=== PATIENT | male | born 1975 | race Caucasian/White ===

== ENCOUNTER 2020-04-13 10:29 | Outpatient (REF) | payer MEDICAID, SELFPAY ==
--- NOTE | 2020-04-13 | US_ITS ---
EXAMINATION: BILATERAL TRIPLEX SCANNING OF THE LOWER EXTREMITIES CLINICAL INFORMATION: Lower extremity swelling. COMPARISON: None. TECHNIQUE: Color-flow triplex imaging with spectral analysis and compression Doppler were performed on the lower extremities. FINDINGS: Respiratory variation, normal compression and augmented flow are noted throughout the lower extremities. The visualized common femoral vein, superficial femoral vein, profunda femoral vein, popliteal vein and mid calf peroneal and posterior tibial venous segments show no evidence of deep venous thrombosis. There is a moderately sized Shetty's cyst on the right. Subcutaneous calf edema bilaterally. There is a mildly enlarged lymph node in the left groin which is nonspecific. IMPRESSION: Normal triplex scan without evidence of deep venous thrombosis involving the lower extremities. Moderately sized right Shetty's cyst.
== END 2020-04-13 10:30 | disposition home or self-care (01) ==
LOC: HO.US 10:29
PROVIDERS: Visit Provider Nurse Practitioner Primary Care
DX: R60.0 Localized edema (principal)
CPT/HCPCS: 93970

== ENCOUNTER → 2023-06-19 13:54 | Outpatient (REF) | payer MEDICAID, SELFPAY | LOC: HO.SL 13:54 | PROVIDERS: PCP Registered Nurse; Visit Provider Registered Nurse | DX: Z13.89 Encounter for screening for other disorder (principal) ==

== ENCOUNTER 2023-08-27 15:00 | Outpatient (AMB) | payer MEDICAID, SELFPAY ==
--- NOTE | 2023-08-27 15:45 | MHC.OFFVIS ---
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 Patient states he has trouble ambulating for the last three years, uses cane due to pain. 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 Complaints include pain bilateral lower extremity, swelling of lower extremities, cramping, fatigue, and heaviness of the lower extremities. It has been affecting there daily activities including walking which requires the use of a cane. It is noted more so in right leg. Of note he does smoke about a pack a day and is a diabetic in addition he does have back pain issues Patient denies any previous venous surgery or injections. Patient denies any history of DVT/ PE. Patient denies any history of phlebitis. Trial of compression includes - [id number] They now present for vascular evaluation regarding their varicose veins. [facility] Medical History Depression with anxiety Type 2 diabetes mellitus Tobacco dependence Essential (primary) hypertension Psychophysiologic insomnia NIMO (obstructive sleep apnea) Dyslipidemia Opioid dependence Review of Systems Const All systems reviewed & are unremarkable except as noted in HPI and below Reports no additional complaints ENT Reports Normal hearing present Card Denies chest pain, Denies chest pain at rest, Denies chest pain with activity and Denies pedal edema Resp Denies cough GI Denies abdominal pain Musc Denies abnormal gait, Denies muscle cramps and Denies radiating pain into limb Skin/Breast Denies skin ulcer and Denies wounds Neuro Reports Normal hearing present and Denies abnormal gait Psych Reports no additional complaints Physical Exam Vital Signs: BMI result Body Mass Index 33.7 Const General: cooperative, healthy appearing and comfortable Orientation/consciousness: oriented to person, oriented to place and oriented to time HEENT Head: Yes normal to inspection Neck Neck: Yes normal visual inspection Carotids: no bruits Chest Chest palpation & inspection: normal inspection of the chest Resp Effort & Inspection: normal respiratory effort and able to speak in complete sentences Auscultation: clear to auscultation bilaterally, no crackles, no rales, no rhonchi and no wheezes Cardio Rate: regular rate Rhythm: regular rhythm Heart sounds: S1 normal heart sound present and S2 normal heart sound present Bruits: no carotid bruits Peripheral pulses: Peripheral pulses 2+ throughout GI Inspection: Yes normal to inspection Skin Wounds: no wounds Hair: normal Neuro General: oriented to person, oriented to place and oriented to time Cranial nerves: Yes CN's II-XII intact bilaterally and Yes Normal hearing present Cognition (Neuro): normal cognition Motor exam (neuro): 5/5 motor strength present throughout Extrem Other: venous exam: +1 edema General: No clubbing, No cyanosis and Yes edema Psych Appearance: grossly normal Mental Status: mental status grossly normal Speech and movement: Normal speech and movement present Assessment & Plan Assessment & Plan (1) Varicose veins of right lower extremity with inflammation: Code(s): I83.11 - Varicose veins of right lower extremity with inflammation Plan: Unclear etiology of lower extremity pain. He does have some swelling which I will workup with venous insufficiency testing. I do believe there is a neurogenic component due to neuropathy and his back pain. It does not appear to be arterial in nature as he does have bilateral palpable dorsalis pedis pulses. Once again we will obtain venous insufficiency testing and he will follow up after testing. Thank you for allowing us to assist in his care. If there are any questions or concerns please do not hesitate to contact us. Orders: Orders US venous insuf bilat 1 Week I83.11 - Varicose veins of right lower extremity with inflammation Coding Level of Care Code New Pt Level 4 (76519) Diagnoses Varicose veins of right lower extremity with inflammation I83.11
[2023-08-27 15:46] VITALS: BMI 33.7
== END 2023-08-27 16:15 | disposition home or self-care (01) ==
LOC: HO.HVS 15:00
PROVIDERS: PCP Registered Nurse; Visit Provider Surgery Vascular Surgery
DX: I83.11 Varicose veins of right lower extremity with inflammation (principal)
CPT/HCPCS: 99203

== ENCOUNTER → 2023-08-27 15:00 | Outpatient (BNVA) | payer MEDICAID, SELFPAY | PROVIDERS: PCP Registered Nurse; Visit Provider Surgery Vascular Surgery | DX: I83.11 Varicose veins of right lower extremity with inflammation (principal) | CPT/HCPCS: 99202 ==

== ENCOUNTER 2023-09-04 12:49 | Outpatient (REF) | payer MEDICAID, SELFPAY ==
--- NOTE | ~2023-09-04 | US_ITS ---
EXAMINATION: US LOWER EXTREMITY VENOUS (REFLUX EXAM), BILATERAL CLINICAL INFORMATION: Chronic venous insufficiency with lower extremity varicose veins with inflammation COMPARISON: None TECHNIQUE: Color flow triplex imaging and compression Doppler was performed to evaluate both the deep and the superficial systems bilaterally. To evaluate the superficial system, the examination was performed in the upright position. Color-flow Doppler ultrasound and compression ultrasound were utilized. In addition, maneuvers were utilized to demonstrate reflux. FINDINGS: 1. DEEP VENOUS ULTRASOUND OF THE RIGHT LOWER EXTREMITY: Common Femoral Vein: Compressible, normal respiratory variation and augmented flow. Femoral Vein: Compressible, normal color flow and augmentation. Popliteal Vein: Compressible, normal augmentation. Deep Reflux: There is no evidence of reflux in the deep system in either the common femoral vein, superficial femoral or the popliteal vein. There is no evidence of a Shetty's cyst. 2. SUPERFICIAL ULTRASOUND WITH DOPPLER OF RIGHT LOWER EXTREMITY: GREAT SAPHENOUS VEIN: Saphenofemoral Junction: 0.7 cm; Reflux: 2508 ms Proximal Thigh: 0.3 cm; Reflux: 0 ms Mid Thigh: 0.4 cm; Reflux: 0 ms Distal Thigh: 0.4 cm; Reflux: 0 ms At Knee: 0.3 cm; Reflux: 0 ms Proximal Calf: 0.3 cm; Reflux: 0 ms Mid Calf: 0.3 cm; Reflux: 0 ms Distal Calf: 0.3 cm; Reflux: 0 ms DUPLICATED MEDIAL GREAT SAPHENOUS VEIN: Diameter: None imaged Reflux: NA DUPLICATED LATERAL GREAT SAPHENOUS VEIN: Diameter: 0.3 cm Reflux: None SMALL SAPHENOUS VEIN: Saphenopopliteal Junction: 0.2 cm; Reflux: 0 ms Proximal: 0.2 cm; Reflux: 0 ms Distal: 0.2 cm; Reflux: 0 ms VEIN OF GIACOMINI: Size: NA Reflux: NA PERFORATORS: Location: Proximal and mid calf Size: 0.2 to 0.3 cm Reflux: None VARICOSITIES: Location: None significant. Size: NA Reflux: NA 3. DEEP VENOUS ULTRASOUND OF THE LEFT LOWER EXTREMITY: Common Femoral Vein: Compressible, normal respiratory variation and augmented flow. Femoral Vein: Compressible, normal color flow and augmentation. Popliteal Vein: Compressible, normal augmentation. Deep Reflux: There is no evidence of reflux in the deep system in either the common femoral vein, superficial femoral or the popliteal vein. There is no evidence of a Shetty's cyst. 4. SUPERFICIAL ULTRASOUND WITH DOPPLER OF LEFT LOWER EXTREMITY: GREAT SAPHENOUS VEIN: Saphenofemoral Junction: 0.7 cm; Reflux: 0 ms Proximal Thigh: 0.4 cm; Reflux: 0 ms Mid Thigh: 0.3 cm; Reflux: 0 ms Distal Thigh: 0.4 cm; Reflux: 0 ms At Knee: 0.4 cm; Reflux: 0 ms Proximal Calf: 0.3 cm; Reflux: 0 ms Mid Calf: 0.2 cm; Reflux: 0 ms Distal Calf: 0.2 cm; Reflux: 0 ms DUPLICATED MEDIAL GREAT SAPHENOUS VEIN: Diameter: None imaged Reflux: NA DUPLICATED LATERAL GREAT SAPHENOUS VEIN: Diameter: 0.5 cm Reflux: None SMALL SAPHENOUS VEIN: Saphenopopliteal Junction: 0.2 cm; Reflux: 0 ms Proximal: 0.2 cm; Reflux: 0 ms Distal: 0.3 cm; Reflux: 0 ms VEIN OF GIACOMINI: Size: NA Reflux: NA PERFORATORS: Location: None significant Size: NA Reflux: NA VARICOSITIES: Location: Posterior mid calf off the small saphenous vein Size: 0.4 cm Reflux: None US/US venous insuf bilat IMPRESSION: Right: Reflux in the saphenofemoral junction of the right great saphenous vein. Remainder of the right great saphenous vein and small saphenous vein without significant reflux Left: No significant reflux in the left great saphenous vein or small saphenous vein
== END 2023-09-04 12:50 | disposition home or self-care (01) ==
LOC: HO.US 12:49
PROVIDERS: PCP Registered Nurse; Visit Provider Surgery Vascular Surgery
DX: I83.11 Varicose veins of right lower extremity with inflammation (principal)
CPT/HCPCS: 93970

== ENCOUNTER → 2023-10-07 15:55 | Outpatient (REF) | payer MEDICAID, SELFPAY | LOC: HO.SL 15:55 | PROVIDERS: PCP Registered Nurse; Visit Provider Registered Nurse | DX: G47.33 Obstructive sleep apnea (adult) (pediatric) (principal); R06.83 Snoring | CPT/HCPCS: 95806 ==

== ENCOUNTER → 2023-10-07 19:00 | Outpatient (BNV) | payer MEDICAID, SELFPAY | PROVIDERS: PCP Registered Nurse; Visit Provider Internal Medicine | DX: G47.33 Obstructive sleep apnea (adult) (pediatric) (principal) | CPT/HCPCS: 95806 ==

== ENCOUNTER 2023-10-08 13:08 | Outpatient (AMB) | payer MEDICAID, SELFPAY ==
--- NOTE | 2023-10-08 13:10 | MHC.OFFVIS ---
Intake Intake Visit Reasons: F/U US 09/04/23 Intake Note: Patient presents for us f/u that was performed on 09/04/23. When asked if he has any swelling or discoloration he states he always has something going on with his legs. No other complaints. Accompanied by: Self / Same As Patient Allergies No Known Allergies Allergy (Verified 10/08/23 13:14) HPI F/U US 09/04/23 HPI Details Complex 48-year-old gentleman presents for follow-up regarding venous insufficiency. At the time of my discussion he states that his legs were doing fairly well and the swelling was down. That being said he woke up about 15 minutes ago. He reports no difficulties at the current time. He now presents for follow-up with venous insufficiency testing. [facility], [facility] Medical History Depression with anxiety Type 2 diabetes mellitus Tobacco dependence Essential (primary) hypertension Psychophysiologic insomnia NIMO (obstructive sleep apnea) Dyslipidemia Opioid dependence Review of Systems Const All systems reviewed & are unremarkable except as noted in HPI and below Reports no additional complaints ENT Reports Normal hearing present Card Denies chest pain, Denies chest pain at rest, Denies chest pain with activity and Denies pedal edema Resp Denies cough GI Denies abdominal pain Musc Denies abnormal gait, Denies muscle cramps and Denies radiating pain into limb Skin/Breast Denies skin ulcer and Denies wounds Neuro Reports Normal hearing present and Denies abnormal gait Psych Reports no additional complaints Physical Exam Const General: cooperative, healthy appearing and comfortable Orientation/consciousness: oriented to person, oriented to place and oriented to time HEENT Head: Yes normal to inspection Neck Neck: Yes normal visual inspection Carotids: no bruits Chest Chest palpation & inspection: normal inspection of the chest Resp Effort & Inspection: normal respiratory effort and able to speak in complete sentences Auscultation: clear to auscultation bilaterally, no crackles, no rales, no rhonchi and no wheezes Cardio Rate: regular rate Rhythm: regular rhythm Heart sounds: S1 normal heart sound present and S2 normal heart sound present Bruits: no carotid bruits Peripheral pulses: Peripheral pulses 2+ throughout GI Inspection: Yes normal to inspection Skin Wounds: no wounds Hair: normal Neuro General: oriented to person, oriented to place and oriented to time Cranial nerves: Yes CN's II-XII intact bilaterally and Yes Normal hearing present Cognition (Neuro): normal cognition Motor exam (neuro): 5/5 motor strength present throughout Extrem Other: venous exam: No significant superficial varicosities or spider telangiectasias, minimal edema General: No clubbing, No cyanosis and No edema Psych Appearance: grossly normal Mental Status: mental status grossly normal Speech and movement: Normal speech and movement present Results Reviewed Results Reviewed: Brief summary of venous insufficiency testing is as follows: right great saphenous vein: negative right small saphenous vein: negative right accessory vein: none present left great saphenous vein: negative left small saphenous vein: negative left accessory vein: none present Please note there is no evidence of any venous aneurysms or significant tortuosity Assessment & Plan Assessment & Plan (1) Varicose veins of right lower extremity with inflammation: Code(s): I83.11 - Varicose veins of right lower extremity with inflammation Plan: In short patient is essentially negative for venous insufficiency. We did discuss routine conservative measures including compression elevation and exercise. Will follow up with us on an as-needed basis. Thank you for allowing us to assist in his care. If there are any questions or concerns please do not hesitate to contact us. Coding Level of Care Code Est Pt Level 4 (06634) Diagnoses Varicose veins of right lower extremity with inflammation I83.11
== END 2023-10-08 13:25 | disposition home or self-care (01) ==
PROVIDERS: PCP Registered Nurse; Visit Provider Surgery Vascular Surgery
DX: I83.11 Varicose veins of right lower extremity with inflammation (principal)
CPT/HCPCS: 99213

== ENCOUNTER → 2023-10-08 13:08 | Outpatient (BNVA) | payer MEDICAID, SELFPAY | PROVIDERS: PCP Registered Nurse; Visit Provider Surgery Vascular Surgery | DX: I83.11 Varicose veins of right lower extremity with inflammation (principal) | CPT/HCPCS: 99212 ==

== ENCOUNTER → 2023-11-01 13:49 | Outpatient (REF) | payer MEDICAID, SELFPAY ==
--- NOTE | 2023-11-01 13:52 | CA_ITS ---
Transthoracic Echocardiogram Patient (Last, First, Middle): Donell Lovell, Gender: Male Date of : 1975 Age: 48 Procedure Date: 11/01/2023 Procedure Type: Transthoracic Echocardiogram Location: OP Height: 170.18 cm Weight: 95.26 kg BSA: 2.06 m2 Heart Rate: bpm BP: 130 / 90 mmHg [employer] Machine Operator: TO Referring MD: Fátima BAE Cardio Tech: Craig Garcia MD Symptoms: i10. HTN R06.0 BI LAT LLE Study Quality: Technically Difficult ECG Rhythm: Sinus Conclusions: - 1. Technically limited study 2. LV is not well visualized on some views LV systolic function appears preserved with LVEF of greater than 60% Findings Procedure Information The study quality is limited by patients body habitus and lung artifact. The patient declines contrast. Left Ventricle The left ventricle was not well visualized. Normal left ventricular cavity size. The visually estimated ejection fraction is between 60-65%. Spectral Doppler is indicative of a normal filling pattern. Right Ventricle The right ventricle was not well visualized. Atria The left atrium was not well visualized. Interatrial shunt cannot be excluded. The right atrium was not well visualized. Aortic Valve The aortic valve was not well visualized. There is no aortic valve stenosis. There is no aortic valve regurgitation. Mitral Valve The mitral valve was not well visualized. There is no mitral valve stenosis. Pulmonic Valve The pulmonic valve was not well visualized. Tricuspid Valve The tricuspid valve was not well visualized. Great Vessels The aorta was not well visualized. The pulmonary artery was not well visualized. Venous The inferior vena cava is normal in size. Pericardium/Pleural The pericardium was not well visualized. Prior Study Comparison No prior study available for comparison. Measurements 2D Linear Measurements IVSd: 0.86 0.6-0.9/0.6-1.0 cm LVIDd: 4.73 3.9-5.3/4.2-5.9 cm LVIDd Index: 2.30 2.4-3.2/2.2-3.1 cm/m2 LVIDs: 3.06 2.0-3.6 cm LVPWd: 0.85 0.7-1.1 cm LA Diam: 2.50 2.7-3.8/3.0-4.0 cm LAIDs Index: 1.21 1.5-2.3 cm/m2 LV Mass: 167.59 67-162/88-224 g LV Mass Index: 81.35 43-95/49-115 g/m2 LVOT Diam: 2.20 3.0+(-)1.3 cm Mitral Valve MV Pk E: 1.02 MV PK A: 0.86 MV Decel Time: 187.00 E/A: 1.20 E'Lateral: 11.20 E'Medial: 7.83 E/E' Med: 13.00 E/E' Lat: 9.10 PHT: 55.00 MVA PHT: 4.00 Decel [place]: 5.44 Aortic Valve AoV Pk Bon: 1.13 AoV Mn Bon: 0.77 AoV VTI: 0.24 AoV Pk Grad: 5.00 Aov Mn Grad: 3.00 RUTHANN Cont.VTI: 3.60 LVOT LVOT Pk Bon: 0.97 LVOT Mn Bon: 0.64 LVOT VTI: 0.23 LVOT Pk Grad: 4.00 LVOT Mn Grad: 2.00 LVOT Diam: 2.20 LVOT Area: 3.80 Diastolic Function MV Pk E: 1.02 MV Pk A: 0.86 E/A: 1.20 E'Medial: 7.83 E/E' Med: 13.00 E' Laterial: 11.20 E/E' Lat: 9.10 Right Ventricle TAPSE (mm): 24.30 TVS' Bon: 16.10 Tricuspid Valve RA Press: 3.00 Great Vessels Aorta Sinus of Valsalva: 3.38 2.0-3.5 cm Ao Asc: 3.20 2.1-3.4 cm Updated in Other Vendor System with Status of Final Craig Garcia MD electronically signed on 11/02/2023 6:20:28 AM with status of Final
== END ==
LOC: HO.CARD 13:49
PROVIDERS: PCP Registered Nurse; Visit Provider Registered Nurse
DX: I10 Essential (primary) hypertension (principal); R60.9 Edema, unspecified
CPT/HCPCS: 93306

== ENCOUNTER → 2023-11-01 13:52 | Outpatient (BNV) | payer MEDICAID, SELFPAY | PROVIDERS: PCP Registered Nurse; Visit Provider Internal Medicine Cardiovascular Disease | DX: I10 Essential (primary) hypertension (principal); R06.00 Dyspnea, unspecified | CPT/HCPCS: 93306 ==

== ENCOUNTER 2024-11-21 13:47 | Emergency (ER) | payer MEDICAID, SELFPAY ==
[2024-11-21 14:02] VITALS: BP 150/85; PULSE 98; RESP 16; TEMP 36.8; O2SAT 97; BMI 32.9
--- NOTE | 2024-11-21 14:06 | ED.SKABFB ---
HPI - Skin/Abscess/Foreign Bdy General Chief complaint: Skin/Abscess/Foreign Body Stated complaint: Abscess L arm Time Seen by Provider: 11/21/24 14:49 Source: patient and family Mode of arrival: ambulatory Limitations: no limitations History of Present Illness ED Provider: Natasha Luis APRN HPI narrative: 49 yo male with history of CKD, HTN, HLD, DM here with abscess to left forearm x 5 days. No fevers, chills. He reports the abscess started draining spontaneously. No weakness, erythema, swelling, numbness, tingling of the extremity. Denies IVDA Related Data Home Medications ?Medication ?Instructions ?Recorded ?Confirmed docusate sodium 100 mg capsule 100 mg PO DAILY 05/17/20 (Colace) lancets 28 gauge (FreeStyle #100 ea 05/17/20 Lancets) lisinopril 10 mg tablet 10 mg PO DAILY 05/17/20 melatonin 10 mg capsule 10 mg PO BEDTIME PRN 05/17/20 naloxone 4 mg/actuation nasal 4 mg intranasal Q3M PRN 05/17/20 spray (Narcan) simvastatin 20 mg/5 mL (4 mg/mL) 20 mg PO DAILY 05/17/20 oral suspension Previous Rx's ?Medication ?Instructions ?Recorded bacitracin 500 unit/gram topical 1 appl topical DAILY #30 ea 11/21/24 packet cephalexin 500 mg capsule 500 mg PO TID #21 caps 11/21/24 doxycycline monohydrate 100 mg 100 mg PO BID #20 caps 11/21/24 capsule Allergies Allergy/AdvReac Type Severity Reaction Status Date / Time No Known Allergies Allergy Verified 11/21/24 14:06 Review of Systems Review of Systems: Yes all other systems are reviewed and are negative Constitutional: Constitutional: Reports no additional constitutional complaints, Denies body ache(s), Denies chills, Denies fever(s), Denies headache(s) and Denies weakness Eyes: Eyes: Reports no additional eye complaints and Denies change in vision ENT: Reports system reviewed and no additional complaints, except as documented, Denies dizziness, Denies headache(s), Denies nasal congestion, Denies nasal discharge and Denies neck pain Cardiovascular: Cardiovascular: Reports no additional cardiovascular complaints, Denies chest pain, Denies leg edema and Denies dyspnea Respiratory: Respiratory: Reports no additional respiratory complaints, Denies cough and Denies dyspnea Gastrointestinal: Gastrointestinal: Reports no additional gastrointestinal complaints, Denies abdominal pain, Denies diarrhea, Denies nausea and Denies vomiting Genitourinary: Genitourinary: Denies urinary incontinence Musculoskeletal: Musculoskeletal: Reports no additional musculoskeletal complaints, Denies back pain, Denies arthralgias, Denies joint swelling, Denies neck pain, Denies numbness and Denies tingling Integumentary/Breasts: Skin/Breast: Reports system reviewed and no additional complaints, except as docu, Denies swelling, Denies erythema, Denies rash and Reports wounds Neurologic: Reports system reviewed and no additional complaints, except as documented, Denies Abnormal speech present, Denies dizziness, Denies headache(s), Denies numbness, Denies tingling and Denies weakness PMFSH Past Medical History Attestation statement: The following information was validated with the patient. Source: old records reviewed and nursing notes reviewed Medical History Depression with anxiety Type 2 diabetes mellitus Tobacco dependence Essential (primary) hypertension Psychophysiologic insomnia NIMO (obstructive sleep apnea) Dyslipidemia Opioid dependence Social History Social History Advance Directives: No Advance Directives Information Provided: No Do you have a plan to hurt others: No Plan Physical Exam Vital Signs: Vital Signs: Last Vital Signs Temp 98.2 F 11/21/24 15:05 Pulse 98 11/21/24 15:05 Resp 16 11/21/24 15:05 BP 150/85 H 11/21/24 15:05 Pulse Ox 97 11/21/24 15:05 O2 Del Method Room Air 11/21/24 15:05 BMI result Body Mass Index 32.9 Const: General: cooperative, healthy appearing, comfortable and no acute distress Orientation/consciousness: patient oriented x3 Limitations: no limitations HEENT: Head: Yes normal to inspection Ears: hearing grossly normal bilaterally General nose exam: Normal external nose present Face and sinus: Yes normal facial exam Mouth: Normal oral and palatal mucosa present Throat: Yes posterior oropharynx normal Eyes: General: appearance normal, both eyes and all related structures Pupils: Equal, round and reactive pupils present Neck: Neck: Yes normal visual inspection Chest: Chest palpation & inspection: normal inspection of the chest Resp: Effort & Inspection: normal respiratory effort Auscultation: clear to auscultation bilaterally Cardio: Rate: regular rate Rhythm: regular rhythm Peripheral pulses: Peripheral pulses 2+ throughout GI: Inspection: Yes normal to inspection Palpation (GI): Soft to palpation and nontender Auscultation: normal bowel sounds Back/Spine/Pelvis: Thoracic/Lumbar Spine: thoracic and lumbar spine normal to inspection Skin: General skin exam: no rashes or lesions noted Neuro: General: patient oriented x3, no focal motor deficits and normal sensation to monofilament Cranial nerves: Yes Equal, round and reactive pupils present Cognition (Neuro): normal cognition Speech: No Abnormal speech present Gait exam (Neuro): Normal gait present Motor exam (neuro): 5/5 motor strength present throughout Extrem: Shoulder/upper arm images: 1. There is a ruptured abscess with mild surrounding erythema. There is no fluctuance or pointing or drainage. FROM. +distal pulses. Course Course Course Narrative: Sapna Luis OSS ARCHITECT 11/21 This is a rapid medical exam. Deferred additional HPI, ROS, PE to primary provider. 49 yo male with history of CKD, HTN, HLD, DM here with abscess to left firearm x 5 days. No fevers, chills. Will obtain labs VSS Medications Administered Discontinued Medications Generic Name Dose Route Start Last Admin Trade Name Mumtaz PRN Reason Stop Dose Admin Bacitracin 1 appl 11/21/24 14:51 11/21/24 15:01 Bacitracin Oint 0.9 Gm Packet TOPICAL 11/21/24 14:52 1 appl ONCE ONE Administration Protocol Medical Decision Making Medical Decision Making MDM Narrative: 49 yo male with history of CKD, HTN, HLD, DM here with abscess to left forearm x 5 days. No fevers, chills. He reports the abscess started draining spontaneously. No weakness, erythema, swelling, numbness, tingling of the extremity. Denies IVDA There is a ruptured abscess to the L FA which is mild, mild cellulitis around the edges. No circumferential cellulitis. No further abscess to drain. CMS intact. Patient non toxic. Labs at baseline Wound care provided. Will send home with bacitracin topical, oral antibiotic Differential Diagnosis Differential Diagnoses: The differential diagnosis associated with the presentation includes cellulitis, abscess low suspicion for deeper space infection, nec fasc, compartment syndrome Admission/Observation Consideration of admission/observation: Escalation of care including admission/observation considered Mild cellulitis no need for IV antibiotics or admission Lab Data MDM Lab Attestation statement: I reviewed the patient's lab results. 11/21/24 14:16 11/21/24 14:15 Labs: Lab Results 11/21/24 11/21/24 Range/Units 14:15 14:16 WBC 10.9 H (4.8-10.8) X10*3/uL RBC 4.00 L (4.60-5.80) X10*6/uL Hgb 11.8 L (14.0-18.0) g/dl Hct 36.9 L (42.0-52.0) % MCV 92.3 (80.0-98.0) fL MCH 29.5 (27.0-33.0) pg MCHC 32.0 (31.0-36.0) g/dl RDW 13.4 (11.0-16.0) % Plt Count 317 (160-400) X10*3/uL MPV 8.7 L (9.4-12.4) fL Immature Gran % (Auto) 0.7 H (0.0-0.4) % Neut % (Auto) 64.7 (45-73) % Lymph % (Auto) 21.3 (20-40) % [place] % (Auto) 8.4 (2-11) % Eos % (Auto) 4.6 H (0-4) % Baso % (Auto) 0.3 (0-2) % Lymph # (Auto) 2.3 (1.2-4.9) X10*3/uL [place] # (Auto) 0.9 (0.1-1.2) X10*3/uL Eos # (Auto) 0.5 H (0.0-0.4) X10*3/uL Baso # (Auto) 0.0 (0.0-0.2) X10*3/uL Abs Immat Gran (auto) 0.08 H (0.00-0.03) X10*3/uL Absolute Neuts (auto) 7.0 (2.0-8.3) x10*3/uL Absolute Nucleated RBC 0.000 (0.0-0.012) X10*3/uL Nucleated RBC % (auto) 0.0 (0.0-0.2) /100WBC Sodium 142 (135-145) mmol/L Potassium 5.2 H (3.3-5.1) mmol/L Chloride 97 (96-108) mmol/L Carbon Dioxide 37 H (22-29) mmol/L Anion Gap 13 (12-20) BUN 13 (9-16) mg/dL Creatinine 1.26 (0.5-1.4) mg/dL Estim Creat Clear Calc 78.0 Estimated GFR > 60 Random Glucose 196 H (60-115) mg/dL Calcium 9.5 (8.4-10.2) mg/dL Independent Historian Clinical information obtained from an independent historian. History obtained from or confirmed by: Friend Prescription Management I considered prescription management with: Antibiotic Chronic Conditions Patient?s care impacted by: Diabetes Discharge Plan Discharge Clinical Impression: Cellulitis Patient Disposition: Home, Self-Care Instructions: Cellulitis (ED), Warm Compress or Soak (ED) Additional Instructions: Take all the antibiotics as prescribed Follow-up with your PCP in one week Return for increasing swelling, redness or fever >100.4 Change the dressing once daily Prescriptions: New bacitracin 500 unit/gram packet 1 appl topical DAILY Qty: 30 0RF cephalexin 500 mg capsule 500 mg PO TID Qty: 21 0RF doxycycline monohydrate 100 mg capsule 100 mg PO BID Qty: 20 0RF No Action melatonin 10 mg capsule 10 mg PO BEDTIME PRN (DME) lancets [FreeStyle Lancets] 28 gauge misc See Rx Instructions .ROUTE .MEDSUPPLY Qty: 100 Rx Instructions: As directed simvastatin 20 mg/5 mL (4 mg/mL) suspension 20 mg PO DAILY lisinopril 10 mg tablet 10 mg PO DAILY docusate sodium [Colace] 100 mg capsule 100 mg PO DAILY Narcan 4 mg/actuation spray,non-aerosol 4 mg intranasal Q3M PRN Rx Instructions: spray 1 dose into ONE nostril; alternate nostrils w each dose until help arrives Referrals: Fátima Allison FNP [Primary Care Provider] - 1 week Interventions: ED Discharge Assessment Last Done: 11/21/24 15:05 Discharge Date/Time: 11/21/24 15:05 Print Language: [place]
[2024-11-21 14:22] LABS: MANUAL DIFF FLAG NO
[2024-11-21 14:23] LABS: Basophils Percent Auto 0.3 % (0-2); Eosinophils Absolute Auto 0.5 X10*3/uL (0.0-0.4); Eosinophils Percent Auto 4.6 % (0-4); Hematocrit 36.9 % (42.0-52.0); Hemoglobin 11.8 g/dl (14.0-18.0); Imm Gran Abs Auto 0.08 X10*3/uL (0.00-0.03); Imm Gran Pct Auto 0.7 % (0.0-0.4); Lymphocytes Absolute Auto 2.3 X10*3/uL (1.2-4.9); Lymphocytes Percent Auto 21.3 % (20-40); Mean Corpuscular Hemoglobin 29.5 pg (27.0-33.0); Mean Corpuscular Volume 92.3 fL (80.0-98.0); Mean Platelet Volume 8.7 fL (9.4-12.4); Monocytes Absolute Auto 0.9 X10*3/uL (0.1-1.2); Monocytes Percent Auto 8.4 % (2-11); Neutrophils Percent Auto 64.7 % (45-73); Platelet Count 317 X10*3/uL (160-400); Red Cell Distribution Width 13.4 % (11.0-16.0); White Blood Count 10.9 X10*3/uL (4.8-10.8)
[2024-11-21 14:38] LABS: Anion Gap 13 (12-20); Blood Urea Nitrogen 13 mg/dL (9-16); Calcium 9.5 mg/dL (8.4-10.2); Carbon Dioxide 37 mmol/L (22-29); Chloride 97 mmol/L (96-108); Estimated Glomerular Filt Rate > 60; Glucose Random 196 mg/dL (60-115); Potassium 5.2 mmol/L (3.3-5.1); Sodium 142 mmol/L (135-145)
[2024-11-21] MEDS: Bacitracin Oint 0.9 GM PACKET 1 APPL TOPICAL (15:01)
[2024-11-21 15:05] VITALS: BP 150/85; PULSE 98; RESP 16; TEMP 36.8; O2SAT 97
== END 2024-11-21 15:05 | disposition home or self-care (01) ==
PROVIDERS: Nurse Practitioner Family; Emergency Provider Emergency Medicine Emergency Medical Services; PCP Registered Nurse
DX: L03.114 Cellulitis of left upper limb (principal); L02.414 Cutaneous abscess of left upper limb; E11.9 Type 2 diabetes mellitus without complications; I10 Essential (primary) hypertension
CPT/HCPCS: 36415; 80048; 85025; 99282; 99283

== ENCOUNTER 2025-02-20 22:11 | Emergency (ER) | payer MEDICAID, SELFPAY ==
--- NOTE | 2025-02-20 | ECG_ITS ---
Test Reason : SOB Blood Pressure : */* mmHG Vent. Rate : 74 BPM Atrial Rate : 74 BPM P-R Int : 136 ms QRS Dur : 84 ms QT Int : 368 ms P-R-T Axes : 76 43 52 degrees QTcB Int : 408 ms Normal sinus rhythm Normal ECG No previous ECGs available Referred By: Corina Avalos Electronically Signed By: Chay Parikh
--- NOTE | ~2025-02-20 | XR_ITS ---
CLINICAL HISTORY: OD found down CHEST X-RAY FRONTAL VIEW COMPARISON: None provided. FINDINGS: A single frontal view of the chest was performed. There is an endotracheal tube with tip in satisfactory position. The cardiac silhouette is accentuated by the portable technique. Retrocardiac atelectasis versus infiltrate is noted. No pleural effusion. No pneumothorax. IMPRESSION: 1. Endotracheal tube with tip in satisfactory position. 2. Retrocardiac atelectasis versus infiltrate is noted. This document has been electronically signed by: Jaden Altamirano M.D. on 02/21/2025 00:14:08
--- NOTE | ~2025-02-20 | CT_ITS ---
CLINICAL HISTORY: abrupt onset change in mentation, L sided deficits CTA HEAD WITH CONTRAST AND 3D POST PROCESSING CTA NECK WITH CONTRAST AND 3D POST PROCESSING COMPARISON: CT brain and CT cervical spine 02/20/2025. FINDINGS: CTA NECK: Sagittal and coronal MIP 3D reconstruction images were performed. Exam is limited due to motion/streak artifact. There is no high-grade stenosis, occlusion, dissection, aneurysm, or vascular malformation. There is no active bleeding. Left vertebral artery dominance is noted. There is soft plaque in the proximal right internal carotid artery without significant stenosis. Common carotid arteries, internal carotid arteries, external carotid arteries, and vertebral arteries are otherwise unremarkable. Endotracheal tube is noted with tip in satisfactory position. Emphysematous changes are noted in the upper lungs. Intravascular gas bubbles are noted which are thought to be iatrogenic and related to the patient's IV line. Incidental note is made of an 8-9 mm low-attenuation nodule in the right thyroid lobe on axial image 686. CTA HEAD: Sagittal and coronal MIP 3D reconstruction images were performed. Exam is limited due to patient positioning/technical factors. There is no significant stenosis, large vessel occlusion, dissection, aneurysm, or vascular malformation. There is no active bleeding.Terminal internal carotid arteries, middle cerebral arteries, anterior cerebral arteries, basilar artery, and posterior cerebral arteries are unremarkable. No evidence of dural venous sinus thrombosis. IMPRESSION: 1. CTA neck and CTA head demonstrate no acute disease. 2. Endotracheal tube with tip in satisfactory position. 3. Additional findings are detailed above. This document has been electronically signed by: Jaden Altamirano M.D. on 02/21/2025 02:01:50
--- NOTE | ~2025-02-20 | CT_ITS ---
CLINICAL HISTORY: OD, found down CT CERVICAL SPINE WITHOUT CONTRAST COMPARISON: None provided. FINDINGS: No evidence of an acute fracture or dislocation involving the cervical spine. Multilevel endplate degenerative changes are present. No prevertebral soft tissue swelling. Endotracheal tube is partially visualized. CTA neck will be reported separately. IMPRESSION: 1. No evidence of an acute fracture or dislocation. This document has been electronically signed by: Jaden Altamirano M.D. on 02/21/2025 00:29:31
--- NOTE | ~2025-02-20 | CT_ITS ---
CLINICAL HISTORY: OD, found down CT BRAIN WITHOUT CONTRAST COMPARISON: None provided. FINDINGS: There is no evidence of an acute infarct or intraparenchymal hemorrhage. There is no mass effect, midline shift, or extra-axial blood. The ventricles are normal in size without evidence of hydrocephalus. The bone windows are unremarkable. IMPRESSION: 1. No acute disease in the brain. This document has been electronically signed by: Jaden Altamirano M.D. on 02/21/2025 00:22:54
--- NOTE | 2025-02-20 22:26 | ED.OVERDOSE ---
HPI - Overdose General Chief Complaint: Overdose Stated Complaint: Overdose, heroine used, narcan given Time Seen by Provider: 02/20/25 22:14 Source: patient, family (spouse Kimberlee), EMS and old records reviewed Mode of arrival: EMS Limitations: other (obtunded) History of Present Illness ED Provider: BRENTON HPI Narrative: 49 yo male with PMH of depression and anxiety, T2DM,HTN, HLD, opiate dependence - EMS states they were going to another call when bystanders came running out and flagged them down. EMS notes they were told by bystanders he had an overdose - 16mg IN narcan given prior to EMS without a response. Unclear when he was last seen well. EMS gave 0.4mg narcan and no response. He came home around 10 coty and his partner Kimberlee states he came home and she notes he couldn't walk well and was hard to understand but he asked for milk. She notes his body was shaking and his tongue looked different to her. She called 911. His neighbors gave him narcan. She last saw him well around dinner time but cannot tell me the exact time. Kimberlee [phone] complaint: other (unclear what happened) Onset (ago): minute(s) (30 [employer]) Timing confirmed by: spouse Treatments Prior to Arrival: narcan (16.4 mg) Related Data Home Medications ?Medication ?Instructions ?Recorded ?Confirmed docusate sodium 100 mg capsule 100 mg PO DAILY 05/17/20 (Colace) lancets 28 gauge (FreeStyle #100 ea 05/17/20 Lancets) lisinopril 10 mg tablet 10 mg PO DAILY 05/17/20 melatonin 10 mg capsule 10 mg PO BEDTIME PRN 05/17/20 naloxone 4 mg/actuation nasal 4 mg intranasal Q3M PRN 05/17/20 spray (Narcan) simvastatin 20 mg/5 mL (4 mg/mL) 20 mg PO DAILY 05/17/20 oral suspension Previous Rx's ?Medication ?Instructions ?Recorded bacitracin 500 unit/gram topical 1 appl topical DAILY #30 ea 11/21/24 packet cephalexin 500 mg capsule 500 mg PO TID #21 caps 11/21/24 doxycycline monohydrate 100 mg 100 mg PO BID #20 caps 11/21/24 capsule Allergies Allergy/AdvReac Type Severity Reaction Status Date / Time No Known Allergies Allergy Verified 02/21/25 01:44 Review of Systems Review of Systems: ROS unable to be obtained due to obtundation PMFSH Past Medical History Source: old records reviewed and obtained from family Medical History Depression with anxiety Type 2 diabetes mellitus Tobacco dependence Essential (primary) hypertension Psychophysiologic insomnia NIMO (obstructive sleep apnea) Dyslipidemia Opioid dependence Social History Social History (Updated 02/20/25 @ 23:32 by Corina Avalos DO) Patient Tobacco Use Status: Tobacco use Unknown Advance Directives: No Do you have a plan to hurt others: No Plan Physical Exam Vital Signs: Vital Signs: Last Vital Signs Temp 0 F L 02/21/25 04:27 Pulse 55 02/21/25 04:27 Resp 18 02/21/25 04:27 BP 115/64 02/21/25 04:27 Pulse Ox 97 02/21/25 04:27 O2 Del Method Mechanical Ventil ation 02/21/25 04:27 FiO2 100 02/20/25 23:29 BMI result Body Mass Index 40.1 Appearance: obtunded GCS 4, has some decerebrate posturing and rhythmic movements of LUE severe distress, he has snoring aspirations and not protecting airway Eyes: Pupils 2mm sluggish with dysconjugate gaze ENT: Pharynx no signs of FB but he needs airway maneuvers to open it no tom or raccoon sign no signs of head trauma Neck: Normal inspection. Neck supple. CVS: Normal heart rate and rhythm. Pulses normal. Respiratory: No respiratory distress. Breath sounds dminished R side. Abdomen: Soft and nontender. Skin: Skin warm and dry. Normal skin color. Extremities: No lower extremity edema. Neuro: GCS 4 no participatin in exam, intermittent decerebrate posturing with unusual rhythmic movements of the LUE Course Course Course Narrative: after speaking to the 1135pm I am going to order a CTA of head and neck for stroke for LVO such as basilar artery causing symptoms MAGGY is present IVF ordered given his symptoms and posturing with possible seizure activity the fact he came home and was acting off but able to ask for milk I think benefits outweigh the risks to look for LVO Reevaluation(s) Reevaluation #1: VS stable, lactic acid is trending up BP is stable abdomen is soft + for cocaine, fentanyl, opiates Reevaluation #2: 216am transfer to [facility] ED Dr. Pierson Reevaluation #3: HR has trended down but BP stable lactic acid increased but abdomen is soft vent in place Medications Administered Discontinued Medications Generic Name Dose Route Start Last Admin Trade Name Mumtaz PRN Reason Stop Dose Admin Propofol 1,000 mg in 100 mls @ 0 mls/hr 02/20/25 22:30 02/21/25 03:43 Diprivan IVCONT 50 mcg/kg/min .Q0M DAFNE 32.79 mls/hr Protocol Administration Per Protocol Fentanyl 1,000 mcg in 100 mls @ 0 mls/hr 02/20/25 22:30 02/21/25 03:02 Sublimaze/Ns IVCONT 150 mcg/hr .Q0M DAFNE 15 mls/hr Protocol Titration Per Protocol Levetiracetam 2,000 mg/ Sodium 120 mls @ 480 mls/hr 02/20/25 22:38 02/20/25 23:33 Chloride IV 02/20/25 22:52 Infused ONCE ONE Infusion Lactated Ringer's 1,000 mls @ 999 mls/hr 02/20/25 23:20 02/21/25 03:22 Lr IV 02/21/25 00:20 Infused .Q1H1M ONE Infusion Piperacillin Sod/Tazobactam 50 mls @ 100 mls/hr 02/20/25 23:23 02/21/25 00:13 Sod 3.375 gm/ Sodium Chloride IV 02/20/25 23:52 Infused ONCE ONE Infusion Lactated Ringer's 1,000 mls @ 999 mls/hr 02/20/25 23:40 02/21/25 03:22 Lr IV 02/21/25 00:40 Infused .Q1H1M ONE Infusion Iohexol 75 ml 02/21/25 00:25 02/21/25 00:26 Iohexol 350 Mg/Ml 100 Ml Infus..Btl IV 02/21/25 00:26 75 ml ONCE ONE Administration Ketamine HCl 50 mg 02/20/25 22:39 02/20/25 23:29 Ketamine Hcl/Ns 100 Mg/10 Ml Syringe IVPUSH 02/20/25 22:40 Not Given ONCE ONE Ketamine HCl 50 mg 02/20/25 23:00 02/20/25 22:35 Ketamine Hcl/Ns 50 Mg/5 Ml Syringe IVPUSH 02/20/25 23:01 50 mg ONCE ONE Administration Ketamine HCl 50 mg 02/20/25 22:55 02/20/25 23:30 Ketamine Hcl/Ns 100 Mg/10 Ml Syringe IVPUSH 02/20/25 22:56 Not Given ONCE ONE Ketamine HCl 50 mg 02/20/25 22:56 02/20/25 23:30 Ketamine Hcl/Ns 100 Mg/10 Ml Syringe IVPUSH 02/20/25 22:57 Not Given ONCE ONE Ketamine HCl 50 mg 02/20/25 23:39 02/20/25 22:36 Ketamine Hcl/Ns 50 Mg/5 Ml Syringe IVPUSH 02/20/25 23:40 50 mg ONCE ONE Administration Naloxone HCl 0.2 mg 02/20/25 22:20 02/20/25 22:30 Naloxone Hcl 0.4 Mg/Ml Vial IVPUSH 0.2 mg Q2M PRN Administration Excessive sedation or RR < 8 Rocuronium Rowe 50 mg 02/20/25 22:56 02/20/25 22:35 Rocuronium Rowe 50 Mg/5 Ml Vial IVPUSH 02/20/25 22:57 50 mg ONCE ONE Administration Rocuronium Rowe 50 mg 02/20/25 22:56 02/20/25 22:36 Rocuronium Rowe 50 Mg/5 Ml Vial IVPUSH 02/20/25 22:57 50 mg ONCE ONE Administration Procedures Intubation Intubation Type:: Endotracheal Tube Insertion Intubation Date:: 02/20/25 Time out performed: Yes sedative: Ketamine Mg Given: 100 paralytic: Rocuronium Mg Given: 100 Laryngoscope: fiber optic video scope ET Tube Size: 7.5 ET Tube Uncuffed: Yes Tube Secured Depth (cm): 24 Tube Secured Location: teeth Tube Placement Confirmation: visualized tube passing through cords, equal breath sounds bilaterally, no breath sounds over epigastrium and confirmation by capnometry Patient Tolerated Procedure: well and no complications Intubation Complications: none Additional Comments: preoxygenated 98% for duration Medical Decision Making Medical Decision Making MDM Narrative: 49 yo male with PMH of depression and anxiety, T2DM,HTN, HLD, opiate dependence here with onset 30 min [employer] of confusion, was trying to ask for milk, altered level of consciousness without last known well time it is unclear per the partner at this time on arrival GCS 4 unable to protect airway he will be intubated, given his posturing and rhythmic movements of the LUE I did add oh. RN watching closely for any other signs of seizures he is on propofol - he was not hypoxic at any time with EMS or us so it does not seem this was related to hypoxia. after talking to partner I am going to obtain CTA of head/neck for LVO (1135pm). I suspect some aspiration given CXR I did order zosyn, I have ordered IVF x 2L for his MAGGY, unclear if there were seizures we have not seen any further posturing or L hand movement since initial arrival we are also seeing carfentanil and medetomidine in our local heroin/fentanyl this could be related to that as well Differential Diagnosis Differential Diagnoses: The differential diagnosis associated with the presentation includes overdose, ICH, seizures, aspiration pneumonia Admission/Observation Consideration of admission/observation: Escalation of care including admission/observation considered transfer to [place] ED needs ICU level of care we have no available beds but also need continuous EEG Consult Healthcare Provider Management of the patient was discussed with: Rn Transplant Lab Data [facility] Lab Attestation statement: I reviewed the patient's lab results. VBG stable, CPK stable trop flat, WBC count elevated has MAGGY baseline Cr is 1.3 02/20/25 22:20 02/20/25 22:20 Labs: Lab Results 02/20/25 02/20/25 02/20/25 Range/Units 22:20 22:20 22:20 WBC Cancelled 15.8 H RBC Cancelled 4.13 L Hgb Cancelled Hct MCV MCH MCHC RDW Plt Count MPV Immature Gran % (Auto) Neut % (Auto) Lymph % (Auto) [place] % (Auto) Eos % (Auto) Baso % (Auto) Lymph # (Auto) [place] # (Auto) Eos # (Auto) Baso # (Auto) Abs Immat Gran (auto) Absolute Neuts (auto) Absolute Nucleated RBC Nucleated RBC % (auto) Hold Blue Top VBG pH (7.32-7.43) VBG pCO2 mmHg VBG pO2 mmHg VBG HCO3 (22-26) mmol/L VBG O2 Saturation % VBG Base Excess mmol/L Sodium (135-145) mmol/L Potassium (3.3-5.1) mmol/L Chloride (96-108) mmol/L Carbon Dioxide (22-29) mmol/L Anion Gap (12-20) BUN (9-16) mg/dL Creatinine (0.5-1.4) mg/dL Estim Creat Clear Calc Estimated GFR POC Glucose (60-115) mg/dL Random Glucose (60-115) mg/dL Lactic Acid (0.5-2.0) mmol/L Lactic Acid F/U @ 2Hr (0.5-2.0) mmol/L Calcium (8.4-10.2) mg/dL Magnesium (1.6-2.6) mg/dL Total Bilirubin (0.0-1.0) mg/dL Direct Bilirubin (0.0-0.5) mg/dL AST (5-37) U/L ALT (0-40) U/L Alkaline Phosphatase (39-117) U/L Ammonia (13-55) umol/L Total Creatine Kinase (38-174) U/L Troponin I High Sens B-Natriuretic Peptide (<100) pg/mL Total Protein (6.5-8.0) g/dL Albumin (3.5-5.0) g/dL Lipase (8-78) U/L Urine Color Urine Appearance Urine pH (5.0-9.0) Ur Specific [place] (1.005-1.025) Urine Protein (Neg-Trace) mg/dL Urine Glucose (UA) (Negative) mg/dL Urine Ketones (Negative) mg/dL Urine Blood (Negative) Urine Nitrite (Negative) Ur Leukocyte Esterase (Negative) Urine RBC (0-2) /HPF Urine WBC (0-5) /HPF Ur Squamous Epith Cells (0-2) /HPF Urine Bacteria (None Seen) Hyaline Casts (0-2) /LPF Salicylates (15-30) mg/dL Urine Opiates Screen (Not Detect) Ur Buprenorphine Scrn (Not Detect) ng/mL Ur Oxycodone Screen (Not Detect) ng/mL Urine Methadone Screen (Not Detect) ng/mL Urine Fentanyl Screen (Not Detect) Acetaminophen (<30) mcg/mL Ur Barbiturates Screen (Not Detect) Ur Phencyclidine Scrn (Not Detect) Ur Amphetamines Screen (Not Detect) U Benzodiazepines Scrn (Not Detect) Urine Cocaine Screen (Not Detect) U Marijuana (THC) Screen (Not Detect) Ethyl Alcohol mg/dL 02/20/25 02/20/2525 Range/Units 22:20 22:20 22:20 WBC RBC Hgb 12.2 L Hct Cancelled 37.4 L MCV Cancelled 90.6 MCH Cancelled MCHC RDW Plt Count MPV Immature Gran % (Auto) Neut % (Auto) Lymph % (Auto) [place] % (Auto) Eos % (Auto) Baso % (Auto) Lymph # (Auto) [place] # (Auto) Eos # (Auto) Baso # (Auto) Abs Immat Gran (auto) Absolute Neuts (auto) Absolute Nucleated RBC Nucleated RBC % (auto) Hold Blue Top VBG pH (7.32-7.43) VBG pCO2 mmHg VBG pO2 mmHg VBG HCO3 (22-26) mmol/L VBG O2 Saturation % VBG Base Excess mmol/L Sodium (135-145) mmol/L Potassium (3.3-5.1) mmol/L Chloride (96-108) mmol/L Carbon Dioxide (22-29) mmol/L Anion Gap (12-20) BUN (9-16) mg/dL Creatinine (0.5-1.4) mg/dL Estim Creat Clear Calc Estimated GFR POC Glucose (60-115) mg/dL Random Glucose (60-115) mg/dL Lactic Acid (0.5-2.0) mmol/L Lactic Acid F/U @ 2Hr (0.5-2.0) mmol/L Calcium (8.4-10.2) mg/dL Magnesium (1.6-2.6) mg/dL Total Bilirubin (0.0-1.0) mg/dL Direct Bilirubin (0.0-0.5) mg/dL AST (5-37) U/L ALT (0-40) U/L Alkaline Phosphatase (39-117) U/L Ammonia (13-55) umol/L Total Creatine Kinase (38-174) U/L Troponin I High Sens B-Natriuretic Peptide (<100) pg/mL Total Protein (6.5-8.0) g/dL Albumin (3.5-5.0) g/dL Lipase (8-78) U/L Urine Color Urine Appearance Urine pH (5.0-9.0) Ur Specific [place] (1.005-1.025) Urine Protein (Neg-Trace) mg/dL Urine Glucose (UA) (Negative) mg/dL Urine Ketones (Negative) mg/dL Urine Blood (Negative) Urine Nitrite (Negative) Ur Leukocyte Esterase (Negative) Urine RBC (0-2) /HPF Urine WBC (0-5) /HPF Ur Squamous Epith Cells (0-2) /HPF Urine Bacteria (None Seen) Hyaline Casts (0-2) /LPF Salicylates (15-30) mg/dL Urine Opiates Screen (Not Detect) Ur Buprenorphine Scrn (Not Detect) ng/mL Ur Oxycodone Screen (Not Detect) ng/mL Urine Methadone Screen (Not Detect) ng/mL Urine Fentanyl Screen (Not Detect) Acetaminophen (<30) mcg/mL Ur Barbiturates Screen (Not Detect) Ur Phencyclidine Scrn (Not Detect) Ur Amphetamines Screen (Not Detect) U Benzodiazepines Scrn (Not Detect) Urine Cocaine Screen (Not Detect) U Marijuana (THC) Screen (Not Detect) Ethyl Alcohol mg/dL 02/20/25 02/20/25 02/20/25 Range/Units 22:20 22:20 22:20 WBC RBC Hgb Hct MCV MCH 29.5 MCHC Cancelled 32.6 RDW Cancelled 13.5 Plt Count Cancelled MPV Immature Gran % (Auto) Neut % (Auto) Lymph % (Auto) [place] % (Auto) Eos % (Auto) Baso % (Auto) Lymph # (Auto) [place] # (Auto) Eos # (Auto) Baso # (Auto) Abs Immat Gran (auto) Absolute Neuts (auto) Absolute Nucleated RBC Nucleated RBC % (auto) Hold Blue Top VBG pH (7.32-7.43) VBG pCO2 mmHg VBG pO2 mmHg VBG HCO3 (22-26) mmol/L VBG O2 Saturation % VBG Base Excess mmol/L Sodium (135-145) mmol/L Potassium (3.3-5.1) mmol/L Chloride (96-108) mmol/L Carbon Dioxide (22-29) mmol/L Anion Gap (12-20) BUN (9-16) mg/dL Creatinine (0.5-1.4) mg/dL Estim Creat Clear Calc Estimated GFR POC Glucose (60-115) mg/dL Random Glucose (60-115) mg/dL Lactic Acid (0.5-2.0) mmol/L Lactic Acid F/U @ 2Hr (0.5-2.0) mmol/L Calcium (8.4-10.2) mg/dL Magnesium (1.6-2.6) mg/dL Total Bilirubin (0.0-1.0) mg/dL Direct Bilirubin (0.0-0.5) mg/dL AST (5-37) U/L ALT (0-40) U/L Alkaline Phosphatase (39-117) U/L Ammonia (13-55) umol/L Total Creatine Kinase (38-174) U/L Troponin I High Sens B-Natriuretic Peptide (<100) pg/mL Total Protein (6.5-8.0) g/dL Albumin (3.5-5.0) g/dL Lipase (8-78) U/L Urine Color Urine Appearance Urine pH (5.0-9.0) Ur Specific [place] (1.005-1.025) Urine Protein (Neg-Trace) mg/dL Urine Glucose (UA) (Negative) mg/dL Urine Ketones (Negative) mg/dL Urine Blood (Negative) Urine Nitrite (Negative) Ur Leukocyte Esterase (Negative) Urine RBC (0-2) /HPF Urine WBC (0-5) /HPF Ur Squamous Epith Cells (0-2) /HPF Urine Bacteria (None Seen) Hyaline Casts (0-2) /LPF Salicylates (15-30) mg/dL Urine Opiates Screen (Not Detect) Ur Buprenorphine Scrn (Not Detect) ng/mL Ur Oxycodone Screen (Not Detect) ng/mL Urine Methadone Screen (Not Detect) ng/mL Urine Fentanyl Screen (Not Detect) Acetaminophen (<30) mcg/mL Ur Barbiturates Screen (Not Detect) Ur Phencyclidine Scrn (Not Detect) Ur Amphetamines Screen (Not Detect) U Benzodiazepines Scrn (Not Detect) Urine Cocaine Screen (Not Detect) U Marijuana (THC) Screen (Not Detect) Ethyl Alcohol mg/dL 02/20/25 02/20/25 02/20/25 Range/Units 22:20 22:20 22:20 WBC RBC Hgb Hct MCV MCH MCHC RDW Plt Count 286 MPV Cancelled 9.4 Immature Gran % (Auto) Cancelled 0.6 H Neut % (Auto) Cancelled Lymph % (Auto) [place] % (Auto) Eos % (Auto) Baso % (Auto) Lymph # (Auto) [place] # (Auto) Eos # (Auto) Baso # (Auto) Abs Immat Gran (auto) Absolute Neuts (auto) Absolute Nucleated RBC Nucleated RBC % (auto) Hold Blue Top VBG pH (7.32-7.43) VBG pCO2 mmHg VBG pO2 mmHg VBG HCO3 (22-26) mmol/L VBG O2 Saturation % VBG Base Excess mmol/L Sodium (135-145) mmol/L Potassium (3.3-5.1) mmol/L Chloride (96-108) mmol/L Carbon Dioxide (22-29) mmol/L Anion Gap (12-20) BUN (9-16) mg/dL Creatinine (0.5-1.4) mg/dL Estim Creat Clear Calc Estimated GFR POC Glucose (60-115) mg/dL Random Glucose (60-115) mg/dL Lactic Acid (0.5-2.0) mmol/L Lactic Acid F/U @ 2Hr (0.5-2.0) mmol/L Calcium (8.4-10.2) mg/dL Magnesium (1.6-2.6) mg/dL Total Bilirubin (0.0-1.0) mg/dL Direct Bilirubin (0.0-0.5) mg/dL AST (5-37) U/L ALT (0-40) U/L Alkaline Phosphatase (39-117) U/L Ammonia (13-55) umol/L Total Creatine Kinase (38-174) U/L Troponin I High Sens B-Natriuretic Peptide (<100) pg/mL Total Protein (6.5-8.0) g/dL Albumin (3.5-5.0) g/dL Lipase (8-78) U/L Urine Color Urine Appearance Urine pH (5.0-9.0) Ur Specific [place] (1.005-1.025) Urine Protein (Neg-Trace) mg/dL Urine Glucose (UA) (Negative) mg/dL Urine Ketones (Negative) mg/dL Urine Blood (Negative) Urine Nitrite (Negative) Ur Leukocyte Esterase (Negative) Urine RBC (0-2) /HPF Urine WBC (0-5) /HPF Ur Squamous Epith Cells (0-2) /HPF Urine Bacteria (None Seen) Hyaline Casts (0-2) /LPF Salicylates (15-30) mg/dL Urine Opiates Screen (Not Detect) Ur Buprenorphine Scrn (Not Detect) ng/mL Ur Oxycodone Screen (Not Detect) ng/mL Urine Methadone Screen (Not Detect) ng/mL Urine Fentanyl Screen (Not Detect) Acetaminophen (<30) mcg/mL Ur Barbiturates Screen (Not Detect) Ur Phencyclidine Scrn (Not Detect) Ur Amphetamines Screen (Not Detect) U Benzodiazepines Scrn (Not Detect) Urine Cocaine Screen (Not Detect) U Marijuana (THC) Screen (Not Detect) Ethyl Alcohol mg/dL 02/20/25 02/20/25 02/20/25 Range/Units 22:20 22:20 22:20 WBC RBC Hgb Hct MCV MCH MCHC RDW Plt Count MPV Immature Gran % (Auto) Neut % (Auto) 68.7 Lymph % (Auto) Cancelled 18.0 L [place] % (Auto) Cancelled 8.4 Eos % (Auto) Cancelled Baso % (Auto) Lymph # (Auto) [place] # (Auto) Eos # (Auto) Baso # (Auto) Abs Immat Gran (auto) Absolute Neuts (auto) Absolute Nucleated RBC Nucleated RBC % (auto) Hold Blue Top VBG pH (7.32-7.43) VBG pCO2 mmHg VBG pO2 mmHg VBG HCO3 (22-26) mmol/L VBG O2 Saturation % VBG Base Excess mmol/L Sodium (135-145) mmol/L Potassium (3.3-5.1) mmol/L Chloride (96-108) mmol/L Carbon Dioxide (22-29) mmol/L Anion Gap (12-20) BUN (9-16) mg/dL Creatinine (0.5-1.4) mg/dL Estim Creat Clear Calc Estimated GFR POC Glucose (60-115) mg/dL Random Glucose (60-115) mg/dL Lactic Acid (0.5-2.0) mmol/L Lactic Acid F/U @ 2Hr (0.5-2.0) mmol/L Calcium (8.4-10.2) mg/dL Magnesium (1.6-2.6) mg/dL Total Bilirubin (0.0-1.0) mg/dL Direct Bilirubin (0.0-0.5) mg/dL AST (5-37) U/L ALT (0-40) U/L Alkaline Phosphatase (39-117) U/L Ammonia (13-55) umol/L Total Creatine Kinase (38-174) U/L Troponin I High Sens B-Natriuretic Peptide (<100) pg/mL Total Protein (6.5-8.0) g/dL Albumin (3.5-5.0) g/dL Lipase (8-78) U/L Urine Color Urine Appearance Urine pH (5.0-9.0) Ur Specific [place] (1.005-1.025) Urine Protein (Neg-Trace) mg/dL Urine Glucose (UA) (Negative) mg/dL Urine Ketones (Negative) mg/dL Urine Blood (Negative) Urine Nitrite (Negative) Ur Leukocyte Esterase (Negative) Urine RBC (0-2) /HPF Urine WBC (0-5) /HPF Ur Squamous Epith Cells (0-2) /HPF Urine Bacteria (None Seen) Hyaline Casts (0-2) /LPF Salicylates (15-30) mg/dL Urine Opiates Screen (Not Detect) Ur Buprenorphine Scrn (Not Detect) ng/mL Ur Oxycodone Screen (Not Detect) ng/mL Urine Methadone Screen (Not Detect) ng/mL Urine Fentanyl Screen (Not Detect) Acetaminophen (<30) mcg/mL Ur Barbiturates Screen (Not Detect) Ur Phencyclidine Scrn (Not Detect) Ur Amphetamines Screen (Not Detect) U Benzodiazepines Scrn (Not Detect) Urine Cocaine Screen (Not Detect) U Marijuana (THC) Screen (Not Detect) Ethyl Alcohol mg/dL 02/20/25 02/20/25 02/20/25 Range/Units 22:20 22:20 22:20 WBC RBC Hgb Hct MCV MCH MCHC RDW Plt Count MPV Immature Gran % (Auto) Neut % (Auto) Lymph % (Auto) [place] % (Auto) Eos % (Auto) 3.9 Baso % (Auto) Cancelled 0.4 Lymph # (Auto) Cancelled 2.8 [place] # (Auto) Cancelled Eos # (Auto) Baso # (Auto) Abs Immat Gran (auto) Absolute Neuts (auto) Absolute Nucleated RBC Nucleated RBC % (auto) Hold Blue Top VBG pH (7.32-7.43) VBG pCO2 mmHg VBG pO2 mmHg VBG HCO3 (22-26) mmol/L VBG O2 Saturation % VBG Base Excess mmol/L Sodium (135-145) mmol/L Potassium (3.3-5.1) mmol/L Chloride (96-108) mmol/L Carbon Dioxide (22-29) mmol/L Anion Gap (12-20) BUN (9-16) mg/dL Creatinine (0.5-1.4) mg/dL Estim Creat Clear Calc Estimated GFR POC Glucose (60-115) mg/dL Random Glucose (60-115) mg/dL Lactic Acid (0.5-2.0) mmol/L Lactic Acid F/U @ 2Hr (0.5-2.0) mmol/L Calcium (8.4-10.2) mg/dL Magnesium (1.6-2.6) mg/dL Total Bilirubin (0.0-1.0) mg/dL Direct Bilirubin (0.0-0.5) mg/dL AST (5-37) U/L ALT (0-40) U/L Alkaline Phosphatase (39-117) U/L Ammonia (13-55) umol/L Total Creatine Kinase (38-174) U/L Troponin I High Sens B-Natriuretic Peptide (<100) pg/mL Total Protein (6.5-8.0) g/dL Albumin (3.5-5.0) g/dL Lipase (8-78) U/L Urine Color Urine Appearance Urine pH (5.0-9.0) Ur Specific [place] (1.005-1.025) Urine Protein (Neg-Trace) mg/dL Urine Glucose (UA) (Negative) mg/dL Urine Ketones (Negative) mg/dL Urine Blood (Negative) Urine Nitrite (Negative) Ur Leukocyte Esterase (Negative) Urine RBC (0-2) /HPF Urine WBC (0-5) /HPF Ur Squamous Epith Cells (0-2) /HPF Urine Bacteria (None Seen) Hyaline Casts (0-2) /LPF Salicylates (15-30) mg/dL Urine Opiates Screen (Not Detect) Ur Buprenorphine Scrn (Not Detect) ng/mL Ur Oxycodone Screen (Not Detect) ng/mL Urine Methadone Screen (Not Detect) ng/mL Urine Fentanyl Screen (Not Detect) Acetaminophen (<30) mcg/mL Ur Barbiturates Screen (Not Detect) Ur Phencyclidine Scrn (Not Detect) Ur Amphetamines Screen (Not Detect) U Benzodiazepines Scrn (Not Detect) Urine Cocaine Screen (Not Detect) U Marijuana (THC) Screen (Not Detect) Ethyl Alcohol mg/dL 02/20/25 02/20/25 02/20/25 Range/Units 22:20 22:20 22:20 WBC RBC Hgb Hct MCV MCH MCHC RDW Plt Count MPV Immature Gran % (Auto) Neut % (Auto) Lymph % (Auto) [place] % (Auto) Eos % (Auto) Baso % (Auto) Lymph # (Auto) [place] # (Auto) 1.3 H Eos # (Auto) Cancelled 0.6 H Baso # (Auto) Cancelled 0.1 Abs Immat Gran (auto) Cancelled Absolute Neuts (auto) Absolute Nucleated RBC Nucleated RBC % (auto) Hold Blue Top VBG pH (7.32-7.43) VBG pCO2 mmHg VBG pO2 mmHg VBG HCO3 (22-26) mmol/L VBG O2 Saturation % VBG Base Excess mmol/L Sodium (135-145) mmol/L Potassium (3.3-5.1) mmol/L Chloride (96-108) mmol/L Carbon Dioxide (22-29) mmol/L Anion Gap (12-20) BUN (9-16) mg/dL Creatinine (0.5-1.4) mg/dL Estim Creat Clear Calc Estimated GFR POC Glucose (60-115) mg/dL Random Glucose (60-115) mg/dL Lactic Acid (0.5-2.0) mmol/L Lactic Acid F/U @ 2Hr (0.5-2.0) mmol/L Calcium (8.4-10.2) mg/dL Magnesium (1.6-2.6) mg/dL Total Bilirubin (0.0-1.0) mg/dL Direct Bilirubin (0.0-0.5) mg/dL AST (5-37) U/L ALT (0-40) U/L Alkaline Phosphatase (39-117) U/L Ammonia (13-55) umol/L Total Creatine Kinase (38-174) U/L Troponin I High Sens B-Natriuretic Peptide (<100) pg/mL Total Protein (6.5-8.0) g/dL Albumin (3.5-5.0) g/dL Lipase (8-78) U/L Urine Color Urine Appearance Urine pH (5.0-9.0) Ur Specific [place] (1.005-1.025) Urine Protein (Neg-Trace) mg/dL Urine Glucose (UA) (Negative) mg/dL Urine Ketones (Negative) mg/dL Urine Blood (Negative) Urine Nitrite (Negative) Ur Leukocyte Esterase (Negative) Urine RBC (0-2) /HPF Urine WBC (0-5) /HPF Ur Squamous Epith Cells (0-2) /HPF Urine Bacteria (None Seen) Hyaline Casts (0-2) /LPF Salicylates (15-30) mg/dL Urine Opiates Screen (Not Detect) Ur Buprenorphine Scrn (Not Detect) ng/mL Ur Oxycodone Screen (Not Detect) ng/mL Urine Methadone Screen (Not Detect) ng/mL Urine Fentanyl Screen (Not Detect) Acetaminophen (<30) mcg/mL Ur Barbiturates Screen (Not Detect) Ur Phencyclidine Scrn (Not Detect) Ur Amphetamines Screen (Not Detect) U Benzodiazepines Scrn (Not Detect) Urine Cocaine Screen (Not Detect) U Marijuana (THC) Screen (Not Detect) Ethyl Alcohol mg/dL 02/20/25 02/20/25 02/20/25 Range/Units 22:20 22:20 22:20 WBC RBC Hgb Hct MCV MCH MCHC RDW Plt Count MPV Immature Gran % (Auto) Neut % (Auto) Lymph % (Auto) [place] % (Auto) Eos % (Auto) Baso % (Auto) Lymph # (Auto) [place] # (Auto) Eos # (Auto) Baso # (Auto) Abs Immat Gran (auto) 0.09 H Absolute Neuts (auto) Cancelled 10.9 H Absolute Nucleated RBC Cancelled 0.000 Nucleated RBC % (auto) Cancelled Hold Blue Top VBG pH (7.32-7.43) VBG pCO2 mmHg VBG pO2 mmHg VBG HCO3 (22-26) mmol/L VBG O2 Saturation % VBG Base Excess mmol/L Sodium (135-145) mmol/L Potassium (3.3-5.1) mmol/L Chloride (96-108) mmol/L Carbon Dioxide (22-29) mmol/L Anion Gap (12-20) BUN (9-16) mg/dL Creatinine (0.5-1.4) mg/dL Estim Creat Clear Calc Estimated GFR POC Glucose (60-115) mg/dL Random Glucose (60-115) mg/dL Lactic Acid (0.5-2.0) mmol/L Lactic Acid F/U @ 2Hr (0.5-2.0) mmol/L Calcium (8.4-10.2) mg/dL Magnesium (1.6-2.6) mg/dL Total Bilirubin (0.0-1.0) mg/dL Direct Bilirubin (0.0-0.5) mg/dL AST (5-37) U/L ALT (0-40) U/L Alkaline Phosphatase (39-117) U/L Ammonia (13-55) umol/L Total Creatine Kinase (38-174) U/L Troponin I High Sens B-Natriuretic Peptide (<100) pg/mL Total Protein (6.5-8.0) g/dL Albumin (3.5-5.0) g/dL Lipase (8-78) U/L Urine Color Urine Appearance Urine pH (5.0-9.0) Ur Specific [place] (1.005-1.025) Urine Protein (Neg-Trace) mg/dL Urine Glucose (UA) (Negative) mg/dL Urine Ketones (Negative) mg/dL Urine Blood (Negative) Urine Nitrite (Negative) Ur Leukocyte Esterase (Negative) Urine RBC (0-2) /HPF Urine WBC (0-5) /HPF Ur Squamous Epith Cells (0-2) /HPF Urine Bacteria (None Seen) Hyaline Casts (0-2) /LPF Salicylates (15-30) mg/dL Urine Opiates Screen (Not Detect) Ur Buprenorphine Scrn (Not Detect) ng/mL Ur Oxycodone Screen (Not Detect) ng/mL Urine Methadone Screen (Not Detect) ng/mL Urine Fentanyl Screen (Not Detect) Acetaminophen (<30) mcg/mL Ur Barbiturates Screen (Not Detect) Ur Phencyclidine Scrn (Not Detect) Ur Amphetamines Screen (Not Detect) U Benzodiazepines Scrn (Not Detect) Urine Cocaine Screen (Not Detect) U Marijuana (THC) Screen (Not Detect) Ethyl Alcohol mg/dL 02/20/25 02/20/25 02/20/25 Range/Units 22:20 22:20 22:20 WBC RBC Hgb Hct MCV MCH MCHC RDW Plt Count MPV Immature Gran % (Auto) Neut % (Auto) Lymph % (Auto) [place] % (Auto) Eos % (Auto) Baso % (Auto) Lymph # (Auto) [place] # (Auto) Eos # (Auto) Baso # (Auto) Abs Immat Gran (auto) Absolute Neuts (auto) Absolute Nucleated RBC Nucleated RBC % (auto) 0.0 Hold Blue Top SEE NOTE VBG pH (7.32-7.43) VBG pCO2 mmHg VBG pO2 mmHg VBG HCO3 (22-26) mmol/L VBG O2 Saturation % VBG Base Excess mmol/L Sodium 139 Cancelled (135-145) mmol/L Potassium 4.4 Cancelled (3.3-5.1) mmol/L Chloride 95 L (96-108) mmol/L Carbon Dioxide (22-29) mmol/L Anion Gap (12-20) BUN (9-16) mg/dL Creatinine (0.5-1.4) mg/dL Estim Creat Clear Calc Estimated GFR POC Glucose (60-115) mg/dL Random Glucose (60-115) mg/dL Lactic Acid (0.5-2.0) mmol/L Lactic Acid F/U @ 2Hr (0.5-2.0) mmol/L Calcium (8.4-10.2) mg/dL Magnesium (1.6-2.6) mg/dL Total Bilirubin (0.0-1.0) mg/dL Direct Bilirubin (0.0-0.5) mg/dL AST (5-37) U/L ALT (0-40) U/L Alkaline Phosphatase (39-117) U/L Ammonia (13-55) umol/L Total Creatine Kinase (38-174) U/L Troponin I High Sens B-Natriuretic Peptide (<100) pg/mL Total Protein (6.5-8.0) g/dL Albumin (3.5-5.0) g/dL Lipase (8-78) U/L Urine Color Urine Appearance Urine pH (5.0-9.0) Ur Specific [place] (1.005-1.025) Urine Protein (Neg-Trace) mg/dL Urine Glucose (UA) (Negative) mg/dL Urine Ketones (Negative) mg/dL Urine Blood (Negative) Urine Nitrite (Negative) Ur Leukocyte Esterase (Negative) Urine RBC (0-2) /HPF Urine WBC (0-5) /HPF Ur Squamous Epith Cells (0-2) /HPF Urine Bacteria (None Seen) Hyaline Casts (0-2) /LPF Salicylates (15-30) mg/dL Urine Opiates Screen (Not Detect) Ur Buprenorphine Scrn (Not Detect) ng/mL Ur Oxycodone Screen (Not Detect) ng/mL Urine Methadone Screen (Not Detect) ng/mL Urine Fentanyl Screen (Not Detect) Acetaminophen (<30) mcg/mL Ur Barbiturates Screen (Not Detect) Ur Phencyclidine Scrn (Not Detect) Ur Amphetamines Screen (Not Detect) U Benzodiazepines Scrn (Not Detect) Urine Cocaine Screen (Not Detect) U Marijuana (THC) Screen (Not Detect) Ethyl Alcohol mg/dL 02/20/25 02/20/25 02/20/25 Range/Units 22:20 22:20 22:20 WBC RBC Hgb Hct MCV MCH MCHC RDW Plt Count MPV Immature Gran % (Auto) Neut % (Auto) Lymph % (Auto) [place] % (Auto) Eos % (Auto) Baso % (Auto) Lymph # (Auto) [place] # (Auto) Eos # (Auto) Baso # (Auto) Abs Immat Gran (auto) Absolute Neuts (auto) Absolute Nucleated RBC Nucleated RBC % (auto) Hold Blue Top VBG pH (7.32-7.43) VBG pCO2 mmHg VBG pO2 mmHg VBG HCO3 (22-26) mmol/L VBG O2 Saturation % VBG Base Excess mmol/L Sodium (135-145) mmol/L Potassium (3.3-5.1) mmol/L Chloride Cancelled (96-108) mmol/L Carbon Dioxide 33 H Cancelled (22-29) mmol/L Anion Gap 15 Cancelled (12-20) BUN 22 H (9-16) mg/dL Creatinine (0.5-1.4) mg/dL Estim Creat Clear Calc Estimated GFR POC Glucose (60-115) mg/dL Random Glucose (60-115) mg/dL Lactic Acid (0.5-2.0) mmol/L Lactic Acid F/U @ 2Hr (0.5-2.0) mmol/L Calcium (8.4-10.2) mg/dL Magnesium (1.6-2.6) mg/dL Total Bilirubin (0.0-1.0) mg/dL Direct Bilirubin (0.0-0.5) mg/dL AST (5-37) U/L ALT (0-40) U/L Alkaline Phosphatase (39-117) U/L Ammonia (13-55) umol/L Total Creatine Kinase (38-174) U/L Troponin I High Sens B-Natriuretic Peptide (<100) pg/mL Total Protein (6.5-8.0) g/dL Albumin (3.5-5.0) g/dL Lipase (8-78) U/L Urine Color Urine Appearance Urine pH (5.0-9.0) Ur Specific [place] (1.005-1.025) Urine Protein (Neg-Trace) mg/dL Urine Glucose (UA) (Negative) mg/dL Urine Ketones (Negative) mg/dL Urine Blood (Negative) Urine Nitrite (Negative) Ur Leukocyte Esterase (Negative) Urine RBC (0-2) /HPF Urine WBC (0-5) /HPF Ur Squamous Epith Cells (0-2) /HPF Urine Bacteria (None Seen) Hyaline Casts (0-2) /LPF Salicylates (15-30) mg/dL Urine Opiates Screen (Not Detect) Ur Buprenorphine Scrn (Not Detect) ng/mL Ur Oxycodone Screen (Not Detect) ng/mL Urine Methadone Screen (Not Detect) ng/mL Urine Fentanyl Screen (Not Detect) Acetaminophen (<30) mcg/mL Ur Barbiturates Screen (Not Detect) Ur Phencyclidine Scrn (Not Detect) Ur Amphetamines Screen (Not Detect) U Benzodiazepines Scrn (Not Detect) Urine Cocaine Screen (Not Detect) U Marijuana (THC) Screen (Not Detect) Ethyl Alcohol mg/dL 02/20/25 02/20/25 02/20/25 Range/Units 22:20 22:20 22:20 WBC RBC Hgb Hct MCV MCH MCHC RDW Plt Count MPV Immature Gran % (Auto) Neut % (Auto) Lymph % (Auto) [place] % (Auto) Eos % (Auto) Baso % (Auto) Lymph # (Auto) [place] # (Auto) Eos # (Auto) Baso # (Auto) Abs Immat Gran (auto) Absolute Neuts (auto) Absolute Nucleated RBC Nucleated RBC % (auto) Hold Blue Top VBG pH (7.32-7.43) VBG pCO2 mmHg VBG pO2 mmHg VBG HCO3 (22-26) mmol/L VBG O2 Saturation % VBG Base Excess mmol/L Sodium (135-145) mmol/L Potassium (3.3-5.1) mmol/L Chloride (96-108) mmol/L Carbon Dioxide (22-29) mmol/L Anion Gap (12-20) BUN Cancelled (9-16) mg/dL Creatinine 2.15 H Cancelled (0.5-1.4) mg/dL Estim Creat Clear Calc 47.3 Cancelled Estimated GFR 33 POC Glucose (60-115) mg/dL Random Glucose (60-115) mg/dL Lactic Acid (0.5-2.0) mmol/L Lactic Acid F/U @ 2Hr (0.5-2.0) mmol/L Calcium (8.4-10.2) mg/dL Magnesium (1.6-2.6) mg/dL Total Bilirubin (0.0-1.0) mg/dL Direct Bilirubin (0.0-0.5) mg/dL AST (5-37) U/L ALT (0-40) U/L Alkaline Phosphatase (39-117) U/L Ammonia (13-55) umol/L Total Creatine Kinase (38-174) U/L Troponin I High Sens B-Natriuretic Peptide (<100) pg/mL Total Protein (6.5-8.0) g/dL Albumin (3.5-5.0) g/dL Lipase (8-78) U/L Urine Color Urine Appearance Urine pH (5.0-9.0) Ur Specific [place] (1.005-1.025) Urine Protein (Neg-Trace) mg/dL Urine Glucose (UA) (Negative) mg/dL Urine Ketones (Negative) mg/dL Urine Blood (Negative) Urine Nitrite (Negative) Ur Leukocyte Esterase (Negative) Urine RBC (0-2) /HPF Urine WBC (0-5) /HPF Ur Squamous Epith Cells (0-2) /HPF Urine Bacteria (None Seen) Hyaline Casts (0-2) /LPF Salicylates (15-30) mg/dL Urine Opiates Screen (Not Detect) Ur Buprenorphine Scrn (Not Detect) ng/mL Ur Oxycodone Screen (Not Detect) ng/mL Urine Methadone Screen (Not Detect) ng/mL Urine Fentanyl Screen (Not Detect) Acetaminophen (<30) mcg/mL Ur Barbiturates Screen (Not Detect) Ur Phencyclidine Scrn (Not Detect) Ur Amphetamines Screen (Not Detect) U Benzodiazepines Scrn (Not Detect) Urine Cocaine Screen (Not Detect) U Marijuana (THC) Screen (Not Detect) Ethyl Alcohol mg/dL 02/20/25 02/20/25 02/20/25 Range/Units 22:20 22:20 22:20 WBC RBC Hgb Hct MCV MCH MCHC RDW Plt Count MPV Immature Gran % (Auto) Neut % (Auto) Lymph % (Auto) [place] % (Auto) Eos % (Auto) Baso % (Auto) Lymph # (Auto) [place] # (Auto) Eos # (Auto) Baso # (Auto) Abs Immat Gran (auto) Absolute Neuts (auto) Absolute Nucleated RBC Nucleated RBC % (auto) Hold Blue Top VBG pH (7.32-7.43) VBG pCO2 mmHg VBG pO2 mmHg VBG HCO3 (22-26) mmol/L VBG O2 Saturation % VBG Base Excess mmol/L Sodium (135-145) mmol/L Potassium (3.3-5.1) mmol/L Chloride (96-108) mmol/L Carbon Dioxide (22-29) mmol/L Anion Gap (12-20) BUN (9-16) mg/dL Creatinine (0.5-1.4) mg/dL Estim Creat Clear Calc Estimated GFR Cancelled POC Glucose (60-115) mg/dL Random Glucose 283 H Cancelled (60-115) mg/dL Lactic Acid 2.6 H* (0.5-2.0) mmol/L Lactic Acid F/U @ 2Hr (0.5-2.0) mmol/L Calcium 9.4 Cancelled (8.4-10.2) mg/dL Magnesium 2.0 (1.6-2.6) mg/dL Total Bilirubin 0.2 (0.0-1.0) mg/dL Direct Bilirubin (0.0-0.5) mg/dL AST (5-37) U/L ALT (0-40) U/L Alkaline Phosphatase (39-117) U/L Ammonia (13-55) umol/L Total Creatine Kinase (38-174) U/L Troponin I High Sens B-Natriuretic Peptide (<100) pg/mL Total Protein (6.5-8.0) g/dL Albumin (3.5-5.0) g/dL Lipase (8-78) U/L Urine Color Urine Appearance Urine pH (5.0-9.0) Ur Specific [place] (1.005-1.025) Urine Protein (Neg-Trace) mg/dL Urine Glucose (UA) (Negative) mg/dL Urine Ketones (Negative) mg/dL Urine Blood (Negative) Urine Nitrite (Negative) Ur Leukocyte Esterase (Negative) Urine RBC (0-2) /HPF Urine WBC (0-5) /HPF Ur Squamous Epith Cells (0-2) /HPF Urine Bacteria (None Seen) Hyaline Casts (0-2) /LPF Salicylates (15-30) mg/dL Urine Opiates Screen (Not Detect) Ur Buprenorphine Scrn (Not Detect) ng/mL Ur Oxycodone Screen (Not Detect) ng/mL Urine Methadone Screen (Not Detect) ng/mL Urine Fentanyl Screen (Not Detect) Acetaminophen (<30) mcg/mL Ur Barbiturates Screen (Not Detect) Ur Phencyclidine Scrn (Not Detect) Ur Amphetamines Screen (Not Detect) U Benzodiazepines Scrn (Not Detect) Urine Cocaine Screen (Not Detect) U Marijuana (THC) Screen (Not Detect) Ethyl Alcohol mg/dL 02/20/25 02/20/25 02/20/25 Range/Units 22:20 22:20 22:20 WBC RBC Hgb Hct MCV MCH MCHC RDW Plt Count MPV Immature Gran % (Auto) Neut % (Auto) Lymph % (Auto) [place] % (Auto) Eos % (Auto) Baso % (Auto) Lymph # (Auto) [place] # (Auto) Eos # (Auto) Baso # (Auto) Abs Immat Gran (auto) Absolute Neuts (auto) Absolute Nucleated RBC Nucleated RBC % (auto) Hold Blue Top VBG pH (7.32-7.43) VBG pCO2 mmHg VBG pO2 mmHg VBG HCO3 (22-26) mmol/L VBG O2 Saturation % VBG Base Excess mmol/L Sodium (135-145) mmol/L Potassium (3.3-5.1) mmol/L Chloride (96-108) mmol/L Carbon Dioxide (22-29) mmol/L Anion Gap (12-20) BUN (9-16) mg/dL Creatinine (0.5-1.4) mg/dL Estim Creat Clear Calc Estimated GFR POC Glucose (60-115) mg/dL Random Glucose (60-115) mg/dL Lactic Acid (0.5-2.0) mmol/L Lactic Acid F/U @ 2Hr (0.5-2.0) mmol/L Calcium (8.4-10.2) mg/dL Magnesium (1.6-2.6) mg/dL Total Bilirubin Cancelled (0.0-1.0) mg/dL Direct Bilirubin < 0.2 (0.0-0.5) mg/dL AST 30 Cancelled (5-37) U/L ALT 23 Cancelled (0-40) U/L Alkaline Phosphatase 88 (39-117) U/L Ammonia (13-55) umol/L Total Creatine Kinase (38-174) U/L Troponin I High Sens B-Natriuretic Peptide (<100) pg/mL Total Protein (6.5-8.0) g/dL Albumin (3.5-5.0) g/dL Lipase (8-78) U/L Urine Color Urine Appearance Urine pH (5.0-9.0) Ur Specific [place] (1.005-1.025) Urine Protein (Neg-Trace) mg/dL Urine Glucose (UA) (Negative) mg/dL Urine Ketones (Negative) mg/dL Urine Blood (Negative) Urine Nitrite (Negative) Ur Leukocyte Esterase (Negative) Urine RBC (0-2) /HPF Urine WBC (0-5) /HPF Ur Squamous Epith Cells (0-2) /HPF Urine Bacteria (None Seen) Hyaline Casts (0-2) /LPF Salicylates (15-30) mg/dL Urine Opiates Screen (Not Detect) Ur Buprenorphine Scrn (Not Detect) ng/mL Ur Oxycodone Screen (Not Detect) ng/mL Urine Methadone Screen (Not Detect) ng/mL Urine Fentanyl Screen (Not Detect) Acetaminophen (<30) mcg/mL Ur Barbiturates Screen (Not Detect) Ur Phencyclidine Scrn (Not Detect) Ur Amphetamines Screen (Not Detect) U Benzodiazepines Scrn (Not Detect) Urine Cocaine Screen (Not Detect) U Marijuana (THC) Screen (Not Detect) Ethyl Alcohol mg/dL 08/02/20/25 02/20/25 Range/Units 22:20 22:20 22:20 WBC RBC Hgb Hct MCV MCH MCHC RDW Plt Count MPV Immature Gran % (Auto) Neut % (Auto) Lymph % (Auto) [place] % (Auto) Eos % (Auto) Baso % (Auto) Lymph # (Auto) [place] # (Auto) Eos # (Auto) Baso # (Auto) Abs Immat Gran (auto) Absolute Neuts (auto) Absolute Nucleated RBC Nucleated RBC % (auto) Hold Blue Top VBG pH (7.32-7.43) VBG pCO2 mmHg VBG pO2 mmHg VBG HCO3 (22-26) mmol/L VBG O2 Saturation % VBG Base Excess mmol/L Sodium (135-145) mmol/L Potassium (3.3-5.1) mmol/L Chloride (96-108) mmol/L Carbon Dioxide (22-29) mmol/L Anion Gap (12-20) BUN (9-16) mg/dL Creatinine (0.5-1.4) mg/dL Estim Creat Clear Calc Estimated GFR POC Glucose (60-115) mg/dL Random Glucose (60-115) mg/dL Lactic Acid (0.5-2.0) mmol/L Lactic Acid F/U @ 2Hr (0.5-2.0) mmol/L Calcium (8.4-10.2) mg/dL Magnesium (1.6-2.6) mg/dL Total Bilirubin (0.0-1.0) mg/dL Direct Bilirubin (0.0-0.5) mg/dL AST (5-37) U/L ALT (0-40) U/L Alkaline Phosphatase Cancelled (39-117) U/L Ammonia (13-55) umol/L Total Creatine Kinase 389 H (38-174) U/L Troponin I High Sens Cancelled 6.9 B-Natriuretic Peptide 23 (<100) pg/mL Total Protein 7.8 Cancelled (6.5-8.0) g/dL Albumin 4.4 (3.5-5.0) g/dL Lipase (8-78) U/L Urine Color Urine Appearance Urine pH (5.0-9.0) Ur Specific [place] (1.005-1.025) Urine Protein (Neg-Trace) mg/dL Urine Glucose (UA) (Negative) mg/dL Urine Ketones (Negative) mg/dL Urine Blood (Negative) Urine Nitrite (Negative) Ur Leukocyte Esterase (Negative) Urine RBC (0-2) /HPF Urine WBC (0-5) /HPF Ur Squamous Epith Cells (0-2) /HPF Urine Bacteria (None Seen) Hyaline Casts (0-2) /LPF Salicylates (15-30) mg/dL Urine Opiates Screen (Not Detect) Ur Buprenorphine Scrn (Not Detect) ng/mL Ur Oxycodone Screen (Not Detect) ng/mL Urine Methadone Screen (Not Detect) ng/mL Urine Fentanyl Screen (Not Detect) Acetaminophen (<30) mcg/mL Ur Barbiturates Screen (Not Detect) Ur Phencyclidine Scrn (Not Detect) Ur Amphetamines Screen (Not Detect) U Benzodiazepines Scrn (Not Detect) Urine Cocaine Screen (Not Detect) U Marijuana (THC) Screen (Not Detect) Ethyl Alcohol mg/dL 02/20/25 02/20/25 02/20/25 Range/Units 22:20 22:32 22:37 WBC RBC Hgb Hct MCV MCH MCHC RDW Plt Count MPV Immature Gran % (Auto) Neut % (Auto) Lymph % (Auto) [place] % (Auto) Eos % (Auto) Baso % (Auto) Lymph # (Auto) [place] # (Auto) Eos # (Auto) Baso # (Auto) Abs Immat Gran (auto) Absolute Neuts (auto) Absolute Nucleated RBC Nucleated RBC % (auto) Hold Blue Top VBG pH 7.33 (7.32-7.43) VBG pCO2 67 mmHg VBG pO2 26 mmHg VBG HCO3 36 H (22-26) mmol/L VBG O2 Saturation < 30.0 % VBG Base Excess 7.6 mmol/L Sodium (135-145) mmol/L Potassium (3.3-5.1) mmol/L Chloride (96-108) mmol/L Carbon Dioxide (22-29) mmol/L Anion Gap (12-20) BUN (9-16) mg/dL Creatinine (0.5-1.4) mg/dL Estim Creat Clear Calc Estimated GFR POC Glucose 237 H (60-115) mg/dL Random Glucose (60-115) mg/dL Lactic Acid (0.5-2.0) mmol/L Lactic Acid F/U @ 2Hr (0.5-2.0) mmol/L Calcium (8.4-10.2) mg/dL Magnesium (1.6-2.6) mg/dL Total Bilirubin (0.0-1.0) mg/dL Direct Bilirubin (0.0-0.5) mg/dL AST (5-37) U/L ALT (0-40) U/L Alkaline Phosphatase (39-117) U/L Ammonia (13-55) umol/L Total Creatine Kinase (38-174) U/L Troponin I High Sens B-Natriuretic Peptide (<100) pg/mL Total Protein (6.5-8.0) g/dL Albumin Cancelled (3.5-5.0) g/dL Lipase 70 (8-78) U/L Urine Color Urine Appearance Urine pH (5.0-9.0) Ur Specific [place] (1.005-1.025) Urine Protein (Neg-Trace) mg/dL Urine Glucose (UA) (Negative) mg/dL Urine Ketones (Negative) mg/dL Urine Blood (Negative) Urine Nitrite (Negative) Ur Leukocyte Esterase (Negative) Urine RBC (0-2) /HPF Urine WBC (0-5) /HPF Ur Squamous Epith Cells (0-2) /HPF Urine Bacteria (None Seen) Hyaline Casts (0-2) /LPF Salicylates (15-30) mg/dL Urine Opiates Screen (Not Detect) Ur Buprenorphine Scrn (Not Detect) ng/mL Ur Oxycodone Screen (Not Detect) ng/mL Urine Methadone Screen (Not Detect) ng/mL Urine Fentanyl Screen (Not Detect) Acetaminophen (<30) mcg/mL Ur Barbiturates Screen (Not Detect) Ur Phencyclidine Scrn (Not Detect) Ur Amphetamines Screen (Not Detect) U Benzodiazepines Scrn (Not Detect) Urine Cocaine Screen (Not Detect) U Marijuana (THC) Screen (Not Detect) Ethyl Alcohol < 10 mg/dL 02/21/25 02/21/25 Range/Units 01:18 01:19 WBC RBC Hgb Hct MCV MCH MCHC RDW Plt Count MPV Immature Gran % (Auto) Neut % (Auto) Lymph % (Auto) [place] % (Auto) Eos % (Auto) Baso % (Auto) Lymph # (Auto) [place] # (Auto) Eos # (Auto) Baso # (Auto) Abs Immat Gran (auto) Absolute Neuts (auto) Absolute Nucleated RBC Nucleated RBC % (auto) Hold Blue Top VBG pH (7.32-7.43) VBG pCO2 mmHg VBG pO2 mmHg VBG HCO3 (22-26) mmol/L VBG O2 Saturation % VBG Base Excess mmol/L Sodium (135-145) mmol/L Potassium (3.3-5.1) mmol/L Chloride (96-108) mmol/L Carbon Dioxide (22-29) mmol/L Anion Gap (12-20) BUN (9-16) mg/dL Creatinine (0.5-1.4) mg/dL Estim Creat Clear Calc Estimated GFR POC Glucose (60-115) mg/dL Random Glucose (60-115) mg/dL Lactic Acid (0.5-2.0) mmol/L Lactic Acid F/U @ 2Hr 3.6 H* (0.5-2.0) mmol/L Calcium (8.4-10.2) mg/dL Magnesium (1.6-2.6) mg/dL Total Bilirubin (0.0-1.0) mg/dL Direct Bilirubin (0.0-0.5) mg/dL AST (5-37) U/L ALT (0-40) U/L Alkaline Phosphatase (39-117) U/L Ammonia 39 (13-55) umol/L Total Creatine Kinase (38-174) U/L Troponin I High Sens B-Natriuretic Peptide (<100) pg/mL Total Protein (6.5-8.0) g/dL Albumin (3.5-5.0) g/dL Lipase (8-78) U/L Urine Color Yellow Urine Appearance Clear Urine pH 6.0 (5.0-9.0) Ur Specific [place] 1.015 (1.005-1.025) Urine Protein 30 (1+) H (Neg-Trace) mg/dL Urine Glucose (UA) 100 H (Negative) mg/dL Urine Ketones Negative (Negative) mg/dL Urine Blood Negative (Negative) Urine Nitrite Negative (Negative) Ur Leukocyte Esterase Negative (Negative) Urine RBC 0-2 (0-2) /HPF Urine WBC 0-5 (0-5) /HPF Ur Squamous Epith Cells 0-2 (0-2) /HPF Urine Bacteria None Seen (None Seen) Hyaline Casts 3-5 (0-2) /LPF Salicylates < 5.0 L (15-30) mg/dL Urine Opiates Screen POSITIVE H (Not Detect) Ur Buprenorphine Scrn Not Detected (Not Detect) ng/mL Ur Oxycodone Screen Not Detected (Not Detect) ng/mL Urine Methadone Screen Not Detected (Not Detect) ng/mL Urine Fentanyl Screen POSITIVE H (Not Detect) Acetaminophen < 3 (<30) mcg/mL Ur Barbiturates Screen Not Detected (Not Detect) Ur Phencyclidine Scrn Not Detected (Not Detect) Ur Amphetamines Screen Not Detected (Not Detect) U Benzodiazepines Scrn Not Detected (Not Detect) Urine Cocaine Screen POSITIVE H (Not Detect) U Marijuana (THC) Screen Not Detected (Not Detect) Ethyl Alcohol mg/dL Independent Interpretation I performed an independent interpretation of an: EKG, Plain X-Ray (ETT in place ? R aspiration) and CT Scan Interpretation: Rate: 74 Rhythm: NSR [place]: normal Normal P waves. Normal EMILY. Normal QRS complex. ST T wave : normal no ERICK qTC: 408 prior studies: no acute ischemia The study has been interpreted contemporaneously by me. . Radiology Impression Discussion of test interpretation with radiology: I have reviewed the radiologist's reading. Radiologist Impression: CTA NECK: Sagittal and coronal MIP 3D reconstruction images were performed. Exam is limited due to motion/streak artifact. There is no high-grade stenosis, occlusion, dissection, aneurysm, or vascular malformation. There is no active bleeding. Left vertebral artery dominance is noted. There is soft plaque in the proximal right internal carotid artery without significant stenosis. Common carotid arteries, internal carotid arteries, external carotid arteries, and vertebral arteries are otherwise unremarkable. Endotracheal tube is noted with tip in satisfactory position. Emphysematous changes are noted in the upper lungs. Intravascular gas bubbles are noted which are thought to be iatrogenic and related to the patient's IV line. Incidental note is made of an 8-9 mm low-attenuation nodule in the right thyroid lobe on axial image [id number]. CTA HEAD: Sagittal and coronal MIP 3D reconstruction images were performed. Exam is limited due to patient positioning/technical factors. There is no significant stenosis, large vessel occlusion, dissection, aneurysm, or vascular malformation. There is no active bleeding.Terminal internal carotid arteries, middle cerebral arteries, anterior cerebral arteries, basilar artery, and posterior cerebral arteries are unremarkable. No evidence of dural venous sinus thrombosis. IMPRESSION: 1. CTA neck and CTA head demonstrate no acute disease. 2. Endotracheal tube with tip in satisfactory position. 3. Additional findings are detailed above. IMPRESSION: 1. Endotracheal tube with tip in satisfactory position. 2. Retrocardiac atelectasis versus infiltrate is noted. Independent Historian Clinical information obtained from an independent historian. History obtained from or confirmed by: Spouse and EMS External Record Review External record reviewed: Outpatient record Critical Care Time Critical Care Time Critical Care Time: Yes Total Critical Care Time: 60 Attestation: no attestation needed. Discharge Plan Discharge Clinical Impression: Obtundation, Acidosis, lactic Drug overdose Qualifiers: Encounter type: initial encounter Injury intent: accidental or unintentional Qualified Code(s): T50.901A - Poisoning by unspecified drugs, medicaments and biological substances, accidental (unintentional), initial encounter Patient Disposition: er [facility] Transfer Details: [facility] ER Prescriptions: No Action bacitracin 500 unit/gram packet 1 appl topical DAILY Qty: 30 0RF cephalexin 500 mg capsule 500 mg PO TID Qty: 21 0RF doxycycline monohydrate 100 mg capsule 100 mg PO BID Qty: 20 0RF melatonin 10 mg capsule 10 mg PO BEDTIME PRN (DME) lancets [FreeStyle Lancets] 28 gauge misc See Rx Instructions .ROUTE .MEDSUPPLY Qty: 100 Rx Instructions: As directed simvastatin 20 mg/5 mL (4 mg/mL) suspension 20 mg PO DAILY lisinopril 10 mg tablet 10 mg PO DAILY docusate sodium [Colace] 100 mg capsule 100 mg PO DAILY Narcan 4 mg/actuation spray,non-aerosol 4 mg intranasal Q3M PRN Rx Instructions: spray 1 dose into ONE nostril; alternate nostrils w each dose until help arrives Referrals: Talita Harmon [facility] [employer] [Primary Care Provider, Internal Medicine] Interventions: Acute Care Transfer Worksheet (ED) Last Done: 02/21/25 04:27 Discharge Date/Time: 02/21/25 04:29 Print Language: Marshallese
[2025-02-20 22:35] VITALS: BP 149/118; PULSE 80; RESP 19; O2SAT 97
[2025-02-20 22:35] LABS: MANUAL DIFF FLAG NO
[2025-02-20] MEDS: Ketamine HCl/NS 50 MG/5 ML SYRINGE IVPUSH ×2 (22:35→22:36)
[2025-02-20 22:37] LABS: Glucose, Whole Blood 237 mg/dL (60-115)
[2025-02-20 22:38] VITALS: BP 149/118; PULSE 102; RESP 22; O2SAT 100
[2025-02-20] MEDS: fentaNYL citrate/NS 1,000 MCG/100 ML PLAST..BAG 2.5 MCG IVCONT (22:38)
[2025-02-20 22:42] LABS: Hematocrit 37.4 % (42.0-52.0); Hemoglobin 12.2 g/dl (14.0-18.0); Imm Gran Abs Auto 0.09 X10*3/uL (0.00-0.03); Imm Gran Pct Auto 0.6 % (0.0-0.4); Lymphocytes Absolute Auto 2.8 X10*3/uL (1.2-4.9); Mean Corpuscular HGB Conc 32.6 g/dl (31.0-36.0); Mean Corpuscular Hemoglobin 29.5 pg (27.0-33.0); Mean Corpuscular Volume 90.6 fL (80.0-98.0); NRBC Abs Auto 0.000 X10*3/uL (0.0-0.012); NRBC Pct Auto 0.0 /100WBC (0.0-0.2); Platelet Count 286 X10*3/uL (160-400); Red Blood Count 4.13 X10*6/uL (4.60-5.80); Venous Blood Gas Refer to POC result; White Blood Count 15.8 X10*3/uL (4.8-10.8)
[2025-02-20 22:43] VITALS: PULSE 90; RESP 17; O2SAT 99
[2025-02-20 22:43] LABS: VBG HCO3 36 mmol/L (22-26); VBG O2 % Saturation < 30.0 %
[2025-02-20 22:45] VITALS: BMI 40.1
[2025-02-20 23:02] LABS: Alanine Aminotransferase 23 U/L (0-40); Albumin Level 4.4 g/dL (3.5-5.0); Alkaline Phosphatase 88 U/L (39-117); Anion Gap 15 (12-20); Aspartate Amino Transferase 30 U/L (5-37); Blood Urea Nitrogen 22 mg/dL (9-16); Calcium 9.4 mg/dL (8.4-10.2); Carbon Dioxide 33 mmol/L (22-29); Chloride 95 mmol/L (96-108); Creatinine Clr Calc Pharmacy 47.3; Estimated Glomerular Filt Rate 33; Magnesium 2.0 mg/dL (1.6-2.6); Potassium 4.4 mmol/L (3.3-5.1); Sodium 139 mmol/L (135-145); Total Protein 7.8 g/dL (6.5-8.0)
[2025-02-20 23:05] LABS: Troponin-I High Sensitivity 6.9 ng/L (<3.5-35.0)
[2025-02-20 23:07] LABS: B Type Natriuretic Peptide 23 pg/mL (<100)
[2025-02-20 23:26] VITALS: PULSE 74; RESP 19; O2SAT 95
[2025-02-20 23:29] VITALS: PULSE 95; TEMP 32; O2SAT 100
[2025-02-20 23:34] LABS: Lipase 70 U/L (8-78)
[2025-02-20] MEDS: Lactated Ringers 1,000 ML 999 ML IV (23:40)
[2025-02-21 00:13] VITALS: BP 109/69; PULSE 58; RESP 23; O2SAT 95
[2025-02-21] MEDS: Lactated Ringers 1,000 ML 999 ML IV (00:16)
[2025-02-21] MEDS: iohexoL 350 MG/ML 100 ML INFUS..BTL 75 ML IV (00:26)
[2025-02-21 00:27] VITALS: BP 111/66; PULSE 58; RESP 25; O2SAT 94
[2025-02-21 00:56] LABS: Reflex Lactate? Lactic Acid Added
[2025-02-21 01:12] VITALS: BP 110/64; PULSE 55; RESP 18; O2SAT 95
--- NOTE | 2025-02-21 01:20 | PC.NURSE ---
Around 2130 pts heart rate increased 115-140's. EKG showed A-fib. Strandquist text sent to the hospitalist who ordered a dose of Metoprolol. HR remained in the 115-130's. Hospitalist made aware and ordered Amiodarone. Shortly after Amiodarone was cancelled and new orders for Digoxin and Hepaprin placed in the MAR. Digoxin administered and pt tolerated well. Heparin drip started at 0108, pt tolerating well. No signs of bleeding noted. Next PTT HD due at 0715. Order placed in the MAR. Monitoring is ongoing.
[2025-02-21 01:30] LABS: Appearance Urine Clear; Glucose Urine UA 100 mg/dL (Negative); PH 6.0 (5.0-9.0); Specific Gravity - Urine 1.015 (1.005-1.025); UMIC TRIGGER UACC YES
[2025-02-21 01:33] LABS: Ammonia 39 umol/L (13-55)
[2025-02-21 01:41] VITALS: BMI 40.1
[2025-02-21 01:42] LABS: ~Lactic Acid-LAB USE ONLY 3.6 mmol/L (0.5-2.0)
[2025-02-21 01:42] LABS: Cannabinoid Screen Urine Not Detected (Not Detect)
--- NOTE | 2025-02-21 01:53 | PC.NURSE ---
Pt arrived around 2214, unresponsive, suspected overdose, given narcan with no effect. On arrival pt was given Narcan IVPUSH with no effect. Posturing noted. Decision made by Dr. Avalos to intubate for airway protection. @223 Pt was given Ketamine 50mg via IV and Rocuronium 50mg via IV with little effect. Pt continued to be unresponsive and making jerk movements. @2235 Pt was given another round of Ketamine 50mg IV and Rocuronium 50mg IV with good effect. @2236 Pt intubated with ETT 7.5, 25 at the lip, + ETCO. Vent Settings: AC/VC, 18 RR, Volume 420, 5 peep @ 30% O2. Volume changed to 360 by RT @ 2349. @2238 Propofol started at 30mcg/kg/min and Fentanyl at 25mcg/hr. Pt noted to have intermittent jerk body movements. Medication titrations noted in the SEP. @2300 and [address] dept for imaging. Nurse and RT at the side for monitoring. @0017 Soft retraints applied. Pt tolerated well. @ 0200 Pts sister, Margarita Lovell, called stating she resides in [place] and was looking for an update. Update provided. Margarita can be reached at [phone].
[2025-02-21 02:00] VITALS: BP 119/69; PULSE 51; RESP 18; O2SAT 97
[2025-02-21 02:29] LABS: Acetaminophen LAB < 3 mcg/mL (<30); Salicylate < 5.0 mg/dL (15-30)
[2025-02-21 03:22] LABS: Reflex Lactate? 2 Y
[2025-02-21 03:23] VITALS: BP 115/64; PULSE 55; RESP 18; O2SAT 97
--- NOTE | 2025-02-21 04:26 | PC.NURSE ---
Nurse to nurse report given to Aubrie at [facility] ED.
[2025-02-21 04:27] VITALS: BP 115/64; PULSE 55; RESP 18; TEMP -17.7; TEMP 0; O2SAT 97
--- NOTE | 2025-03-01 02:40 | PC.NURSE ---
Late entry: Pt went to [facility] on a ventilator. Fentanyl running with 2 hrs of infusion remaining and a new bottle of Propofol was administered to maintain sedation during transport. Pt left via ambulance with these two medications infusing.
[2025-03-02 07:43] LABS: Designer Stimulants, UR NEGATIVE; Other Illicit Additives, UR POSITIVE; Synthetic Cannabinoids, UR NEGATIVE
[2025-03-02 07:44] LABS: Designer Benzodiazepines, UR NEGATIVE; Designer Fentanyl Analogs, UR POSITIVE; Designer Opioids, UR NEGATIVE
== END 2025-02-21 04:29 | disposition short-term general hospital (02) ==
PROVIDERS: Nurse Practitioner Psychiatric/Mental Health; Emergency Provider Emergency Medicine; PCP Nurse Practitioner Primary Care
DX: E87.20 Acidosis, unspecified (principal); N17.9 Acute kidney failure, unspecified; T50.904A Poisoning by unspecified drugs, medicaments and biological substances, undetermined, initial encounter; R40.0 Somnolence; Y92.480 Sidewalk as the place of occurrence of the external cause; F32.A Depression, unspecified; F41.9 Anxiety disorder, unspecified; E11.9 Type 2 diabetes mellitus without complications; I10 Essential (primary) hypertension; E78.5 Hyperlipidemia, unspecified; F17.210 Nicotine dependence, cigarettes, uncomplicated; F51.04 Psychophysiologic insomnia; F11.20 Opioid dependence, uncomplicated; Z79.02 Long term (current) use of antithrombotics/antiplatelets; Z79.899 Other long term (current) drug therapy
CPT/HCPCS: 31500; 36415; 70450; 70496; 70498; 71045; 72125; 80053; 80143; 80179; 80307; 80346; 80352; 80354; 80364; 80371; 80375; 81001; 82140; 82248; 82550; 82803; 82947; 83605; 83690; 83735; 83880; 84484; 85025; 87040; 93005; 94002; 96365; 96366; 96375; 99285; 99291; J1953; J2312; J2543; J2704; J3010; J7120; Q9967

== ENCOUNTER → 2025-02-20 22:27 | Outpatient (BNV) | payer MEDICAID, SELFPAY | PROVIDERS: Emergency Provider Emergency Medicine; Visit Provider Radiology Diagnostic Radiology | DX: R41.82 Altered mental status, unspecified (principal); T40.601A Poisoning by unspecified narcotics, accidental (unintentional), initial encounter | CPT/HCPCS: 70450; 71045; 72125 ==

== ENCOUNTER → 2025-02-20 22:28 | Outpatient (BNV) | payer MEDICAID, SELFPAY | PROVIDERS: Emergency Provider Emergency Medicine; PCP Nurse Practitioner Primary Care; Visit Provider Internal Medicine Cardiovascular Disease | DX: R06.02 Shortness of breath (principal) | CPT/HCPCS: 93010 ==

== ENCOUNTER → 2025-02-21 | Outpatient (BNV) | payer MEDICAID, SELFPAY | PROVIDERS: Emergency Provider Emergency Medicine; PCP Nurse Practitioner Primary Care; Visit Provider Radiology Diagnostic Radiology | DX: R41.82 Altered mental status, unspecified (principal); G81.94 Hemiplegia, unspecified affecting left nondominant side | CPT/HCPCS: 70496; 70498 ==